=== PATIENT | female | born 1965 | race Caucasian/White ===

== ENCOUNTER 2020-06-26 07:02 | Outpatient (REF) | payer OTHER, SELFPAY ==
--- NOTE | 2020-06-26 07:17 | XR_ITS ---
EXAMINATION: XR CHEST CLINICAL INFORMATION: Cough. COMPARISON: None TECHNIQUE: 2 views of the chest were obtained. FINDINGS: Normal lung volumes. No consolidation or pulmonary edema. No pneumothorax or pleural effusion. Cardiomediastinal silhouette within normal limits. No acute osseous abnormality. Small calcification projects inferior to the acromion which may reflect calcific tendinosis in the right shoulder. XR/XR chest 2V IMPRESSION: Clear lungs. No consolidation. Question right rotator cuff calcific tendinosis.
--- NOTE | 2020-06-26 07:17 | XR_ITS ---
EXAMINATION: XR HIP, LEFT CLINICAL INFORMATION: Left hip pain COMPARISON: 06/13/2018 TECHNIQUE: Two views of the left hip. FINDINGS: There is no fracture or dislocation. The femoral head articulates appropriately with the acetabulum. The joint space is maintained. Similar spur seen at the greater trochanter when compared to prior. The visualized left hemipelvis is intact. The bowel gas pattern is unremarkable. XR/XR hip LT min 2V IMPRESSION: No acute abnormality. No significant arthritic changes.
[2020-06-26 08:17] LABS: Alanine Aminotransferase 11 U/L (0-31); Albumin Level 4.4 g/dL (3.5-5.0); Alkaline Phosphatase 66 U/L (39-117); Anion Gap 13 (12-20); Aspartate Amino Transferase 13 U/L (5-31); Bilirubin Total 0.8 mg/dL (0.0-1.0); Blood Urea Nitrogen 18 mg/dL (9-16); Calcium 10.3 mg/dL (8.4-10.2); Carbon Dioxide 30 mmol/L (22-29); Chloride 104 mmol/L (96-108); Cholesterol 220 mg/dL; Estimated Glomerular Filt Rate > 60; Glucose Fasting 102 mg/dL (60-99); HDL Cholesterol 65 mg/dL; LDL Cholesterol Calculated 118 mg/dl; Potassium 4.8 mmol/l (3.3-5.1); Sodium 142 mmol/L (135-145); Total Protein 6.9 g/dL (6.5-8.0); Triglycerides 185 mg/dL
[2020-06-30 13:41] LABS: Vitamin D 25-OH, D2 <4 ng/mL; Vitamin D 25-OH, D3 32 ng/mL; Vitamin D 25-OH, Total 32 ng/mL (30-100)
== END 2020-06-26 07:03 | disposition home or self-care (01) ==
LOC: HO.LAB 07:02
PROVIDERS: Visit Provider Internal Medicine
DX: E55.9 Vitamin D deficiency, unspecified (principal); E78.5 Hyperlipidemia, unspecified; I10 Essential (primary) hypertension; R05 Cough; M25.552 Pain in left hip; Z20.822 Contact with and (suspected) exposure to COVID-19
CPT/HCPCS: 36415; 71046; 73502; 80053; 80061; 82306; U0003

== ENCOUNTER → 2020-08-12 09:40 | Outpatient (BNVA) | payer OTHER, SELFPAY | PROVIDERS: PCP Internal Medicine; Visit Provider Obstetrics & Gynecology ==

== ENCOUNTER 2020-09-23 08:28 | Outpatient (REF) | payer OTHER, SELFPAY ==
--- NOTE | ~2020-09-23 | XR_ITS ---
EXAMINATION: XR KNEE, LEFT CLINICAL INFORMATION: Pain and unspecified the COMPARISON: Left knee x-rays June 13, 2018 TECHNIQUE: 3 views of the left knee in addition to a standing AP view of the right knee. FINDINGS: No fracture or dislocation of the left knee. No left-sided suprapatellar joint effusion. Joint spaces of the left knee are well-maintained. Tiny tricompartmental marginal osteophytes of the left knee are noted. There is no focal soft tissue swelling of the anterior left knee. Frontal view of the right knee demonstrate mild narrowing of the medial joint space height. XR/XR knee LT 3V IMPRESSION: Minimal degenerative changes of the left knee.
== END 2020-09-23 08:29 | disposition home or self-care (01) ==
LOC: HO.HOSX 08:28
PROVIDERS: Visit Provider Physician Assistant
DX: M25.562 Pain in left knee (principal); M22.42 Chondromalacia patellae, left knee
CPT/HCPCS: 73562; 99202

== ENCOUNTER → 2020-10-03 09:06 | Outpatient (BNVA) | payer OTHER, SELFPAY | PROVIDERS: PCP Internal Medicine; Visit Provider Internal Medicine Pulmonary Disease | DX: R05 Cough (principal) | CPT/HCPCS: 99202 ==

== ENCOUNTER 2020-10-20 07:42 | Outpatient (REF) | payer OTHER, SELFPAY ==
--- NOTE | 2020-10-20 17:00 | PFT_ITS ---
INDICATION: Cough. SPIROMETRY: The FEV1 to FVC of 71% with an FEV1 of 1.54 L which is 62% predicted and an FVC of 2.16 L, which is 68% predicted. No significant response to bronchodilators noted. To note, there was significant small airways disease noted. Maximum voluntary ventilation 60% predicted. LUNG VOLUMES: Total lung capacity 94% predicted with residual volume of 125% predicted. DIFFUSION CAPACITY: DLCO 63% predicted. INTERPRETATION: There appears to be an obstructive ventilatory defect, moderate in severity. In addition to that, the patient does have evidence of small airways disease. There is also a mild to moderate decrease in maximum voluntary ventilation secondary to deconditioning and also worsening dynamic inspiratory capacity. No significant response to bronchodilators. Lung volumes with significant air trapping due to the small airways disease in the obstructive physiology. The patient also has a decrease in the expiratory reserve volume secondary to an elevated BMI. In addition to that, there appears to be a mild diffusion impairment. Clinical correlation is warranted. Sabas Cortez MD MR/MODL / [id number]
== END 2020-10-20 07:43 | disposition home or self-care (01) ==
LOC: HO.RESP 07:42
PROVIDERS: PCP Internal Medicine; Visit Provider Internal Medicine Pulmonary Disease
DX: R05 Cough (principal)
CPT/HCPCS: 94060; 94727; 94729

== ENCOUNTER → 2020-10-24 08:39 | Outpatient (BNVA) | payer OTHER, SELFPAY | PROVIDERS: PCP Internal Medicine; Visit Provider Internal Medicine Pulmonary Disease | DX: R05 Cough (principal); J43.9 Emphysema, unspecified; I10 Essential (primary) hypertension; E55.9 Vitamin D deficiency, unspecified; E78.00 Pure hypercholesterolemia, unspecified; R91.8 Other nonspecific abnormal finding of lung field | CPT/HCPCS: 99212 ==

== ENCOUNTER 2020-11-13 06:36 | Outpatient (REF) | payer OTHER, SELFPAY ==
[2020-11-13 09:47] LABS: Alanine Aminotransferase 13 U/L (0-31); Albumin Level 4.2 g/dL (3.5-5.0); Alkaline Phosphatase 72 U/L (39-117); Anion Gap 12 (12-20); Aspartate Amino Transferase 15 U/L (5-31); Bilirubin Total 0.6 mg/dL (0.0-1.0); Blood Urea Nitrogen 7 mg/dL (9-16); Calcium 9.5 mg/dL (8.4-10.2); Carbon Dioxide 28 mmol/L (22-29); Chloride 106 mmol/L (96-108); Cholesterol 190 mg/dL; Estimated Glomerular Filt Rate > 60; Glucose Fasting 98 mg/dL (60-99); HDL Cholesterol 52 mg/dL; LDL Cholesterol Calculated 105 mg/dl; Potassium 4.2 mmol/L (3.3-5.1); Sodium 142 mmol/L (135-145); Total Protein 6.5 g/dL (6.5-8.0); Triglycerides 167 mg/dL
[2020-11-20 13:07] LABS: Vitamin D 25-OH, D2 <4 ng/mL; Vitamin D 25-OH, D3 33 ng/mL; Vitamin D 25-OH, Total 33 ng/mL (30-100)
== END 2020-11-13 06:37 | disposition home or self-care (01) ==
LOC: HO.LAB 06:36
PROVIDERS: PCP Internal Medicine; Visit Provider Internal Medicine
DX: E55.9 Vitamin D deficiency, unspecified (principal); E78.00 Pure hypercholesterolemia, unspecified; E78.5 Hyperlipidemia, unspecified
CPT/HCPCS: 36415; 80053; 80061; 82306

== ENCOUNTER 2021-01-08 08:43 | Outpatient (REF) | payer OTHER, SELFPAY ==
--- NOTE | ~2021-01-08 | MM_ITS ---
EXAMINATION: MM SCREENING DIGITAL BREAST TOMOSYNTHESIS, BILATERAL CLINICAL INFORMATION: Screening. Asymptomatic. The lifetime risk of breast cancer based on the Tyrer-Cuzick Model is 13%. COMPARISON: Mammography: 01/03/2020, 10/13/2018, 10/05/2017 TECHNIQUE: Digital breast tomosynthesis is performed in both the craniocaudal and mediolateral oblique views along with computer-aided detection (CAD). Synthesized 2D images are generated from the tomosynthesis. FINDINGS: The breasts are heterogeneously dense, which may obscure small masses (ACR BI-RADS breast composition Category c). There are no significant masses, abnormal calcifications, or other abnormalities. There is biopsy clip marker upper outer right breast. The axilla and skin contours are unremarkable. MM/MM tomosynthesis screening BI IMPRESSION: No mammographic evidence of malignancy. ASSESSMENT: BI-RADS 1: Negative RECOMMENDATION: Routine annual mammography screening. This patient's information was entered into a reminder system with a target due date for their next mammogram.
== END 2021-01-08 08:44 | disposition home or self-care (01) ==
LOC: HO.MAMMO 08:43
PROVIDERS: Visit Provider Internal Medicine
DX: Z12.31 Encounter for screening mammogram for malignant neoplasm of breast (principal)
CPT/HCPCS: 77063; 77067

== ENCOUNTER 2021-01-13 08:04 | Outpatient (REF) | payer OTHER, SELFPAY ==
--- NOTE | ~2021-01-13 | CT_ITS ---
EXAMINATION: CT CHEST WITHOUT CONTRAST CLINICAL INFORMATION: Pulmonary nodule. COMPARISON: Chest radiograph dated 06/26/2020 TECHNIQUE: Multidetector volumetric CT imaging of the chest was done. Axial MIP volume rendering provided. Sagittal and coronal reformatted images were obtained. This CT examination was performed using dose optimization techniques as appropriate, variously including the following: *Automated exposure control *Adjustment of mA and/or kV according to patient size (this includes techniques or standardized protocols for targeted exams where dose is matched to indication/reason for exam; i.e. extremities or head) *Use of iterative reconstruction technique DLP: 152 mGy-cm FINDINGS: FIRE ALARM INSPECTOR: Unremarkable. LUNGS: There are mild, diffuse centrilobular emphysematous changes. There is a somewhat irregular soft tissue nodule centrally within the right upper lobe measuring 0.6 cm (axial image 179/496). There is a subpleural 0.2 cm nodule along the right major fissure (axial image 251/496). Additional subpleural 0.2 cm nodule in the region of the right minor fissure (axial image 262/496). Posterior right lower lobe noncalcified nodule measuring 0.4 cm (axial image 275/496). Right middle lobe noncalcified 0.2 cm nodule (axial image 292/496). There is a 0.3 cm subpleural nodule laterally within the left lower lobe (axial image 344/496). Additional posterior 0.2 cm subpleural nodule within the left lower lobe (axial image 353/496). No large pulmonary mass or confluent airspace consolidation. The central airways are patent. MEDIASTINUM: No cardiomegaly. No pericardial effusion. Prominent precarinal lymph nodes with the largest measuring up to 1.0 x 1.3 cm (axial image 22/60). Partially visualized and unremarkable thyroid. PLEURA: There is no pleural effusion. No pleural mass or thickening. AXILLA: No lymphadenopathy. UPPER ABDOMEN: Status post cholecystectomy. Otherwise, the visualized upper abdominal structures are unremarkable. OSSEOUS STRUCTURES: Unremarkable. CT/CT chest wo con IMPRESSION: 1. Multiple bilateral noncalcified pulmonary nodules with the largest appearing slightly irregular within the right upper lobe measuring up to 0.6 cm. According to the UPDATED 2017 Fleischner Society recommendations, the advised followup imaging for multiple solid nodules, the largest measuring 6 mm or greater, is: LOW RISK PATIENT: CT at 3-6 months, then consider CT at 18-24 months. HIGH RISK PATIENT: CT at 3-6 months, then at 18-24 months. 2. No large pulmonary mass or confluent airspace consolidation. 3. Mildly enlarged superior mediastinal lymph nodes measuring up to 1.0 x 1.3 cm.
== END 2021-01-13 08:05 | disposition home or self-care (01) ==
LOC: HO.CT 08:04
PROVIDERS: PCP Internal Medicine; Visit Provider Internal Medicine Pulmonary Disease
DX: R91.8 Other nonspecific abnormal finding of lung field (principal)
CPT/HCPCS: 71250

== ENCOUNTER → 2021-03-05 14:27 | Outpatient (BNVA) | payer OTHER, SELFPAY | PROVIDERS: PCP Internal Medicine; Visit Provider Internal Medicine Pulmonary Disease | DX: J43.9 Emphysema, unspecified (principal); R91.8 Other nonspecific abnormal finding of lung field | CPT/HCPCS: 99212 ==

== ENCOUNTER → 2021-06-09 09:55 | Outpatient (BNVA) | payer OTHER, SELFPAY | PROVIDERS: PCP Internal Medicine; Visit Provider Internal Medicine Pulmonary Disease | DX: J43.9 Emphysema, unspecified (principal); R91.8 Other nonspecific abnormal finding of lung field; F17.210 Nicotine dependence, cigarettes, uncomplicated | CPT/HCPCS: 99212 ==

== ENCOUNTER 2021-08-13 09:45 | Outpatient (REF) | payer OTHER, SELFPAY ==
--- NOTE | ~2021-08-13 | XR_ITS ---
EXAMINATION: XR knee LT 3V CLINICAL INFORMATION: Pain COMPARISON: Knee radiographs 09/23/2020 TECHNIQUE: 3 views of the knee XR/XR knee LT 3V FINDINGS/IMPRESSION: No acute fracture or dislocation. Achilles tendon enthesopathy. Joint spaces are maintained. No joint effusion. Soft tissues are unremarkable.
== END 2021-08-13 09:46 | disposition home or self-care (01) ==
LOC: HO.XRAY 09:45
PROVIDERS: PCP Internal Medicine; Visit Provider Internal Medicine
DX: M25.562 Pain in left knee (principal)
CPT/HCPCS: 73562

== ENCOUNTER 2021-09-07 12:39 | Outpatient (REF) | payer OTHER, SELFPAY ==
--- NOTE | ~2021-09-07 | CT_ITS ---
EXAMINATION: CT CHEST WITHOUT CONTRAST CLINICAL INFORMATION: Follow-up pulmonary nodules COMPARISON: Previous chest CT December 2020 TECHNIQUE: Multidetector volumetric CT imaging of the chest was done. Axial MIP volume rendering provided. Sagittal and coronal reformatted images were obtained. This CT examination was performed using dose optimization techniques as appropriate, variously including the following: *Automated exposure control *Adjustment of mA and/or kV according to patient size (this includes techniques or standardized protocols for targeted exams where dose is matched to indication/reason for exam; i.e. extremities or head) *Use of iterative reconstruction technique DLP: 164 mGy-cm FINDINGS: THREE DIMENSIONAL ART INSTRUCTOR: Unremarkable LUNGS: There is evidence of emphysema. There are bilateral pulmonary nodules are stable. Largest pulmonary nodule is a 5 mm right upper lobe nodule axial image 231 series 7. No new pulmonary nodule is seen. There are areas of increased peribronchial attenuation questionable for respiratory bronchiolitis related to smoking. No evidence of interstitial lung disease or bronchiectasis is seen. No endobronchial or endotracheal lesion is seen. MEDIASTINUM: The mediastinum is normal. There are small mediastinal lymph nodes that are stable. PLEURA: There is no pleural effusion. No pleural mass or thickening. AXILLA: No lymphadenopathy. UPPER ABDOMEN: The gallbladder has been removed. OSSEOUS STRUCTURES: There are degenerative changes of the spine. CT/CT chest wo con IMPRESSION: Emphysema. Stable pulmonary nodules. Increased peribronchial attenuation questionable for respiratory bronchiolitis related to smoking Fleischner guidelines were followed.
== END 2021-09-07 12:40 | disposition home or self-care (01) ==
LOC: HO.CT 12:39
PROVIDERS: PCP Internal Medicine; Visit Provider Internal Medicine Pulmonary Disease
DX: R91.8 Other nonspecific abnormal finding of lung field (principal)
CPT/HCPCS: 71250

== ENCOUNTER → 2021-09-15 09:39 | Outpatient (BNVA) | payer OTHER, SELFPAY | PROVIDERS: PCP Internal Medicine; Visit Provider Internal Medicine Pulmonary Disease | DX: J43.9 Emphysema, unspecified (principal); R91.8 Other nonspecific abnormal finding of lung field; F17.210 Nicotine dependence, cigarettes, uncomplicated | CPT/HCPCS: 99212 ==

== ENCOUNTER 2021-09-29 08:14 | Outpatient (REF) | payer OTHER, SELFPAY ==
[2021-09-30 12:15] LABS: BV Int Neg Control Negative (Negative); BV Int Pos Control Positive (Positive)
[2021-10-01 23:13] LABS: HPV mRNA E6/E7 rflx Not Detected (Not Detected)
== END 2021-09-29 08:15 | disposition home or self-care (01) ==
LOC: HO.LAB 08:14
PROVIDERS: PCP Internal Medicine; Visit Provider Advanced Practice Midwife
DX: Z01.419 Encounter for gynecological examination (general) (routine) without abnormal findings (principal); N89.8 Other specified noninflammatory disorders of vagina; F17.210 Nicotine dependence, cigarettes, uncomplicated; Z20.2 Contact with and (suspected) exposure to infections with a predominantly sexual mode of transmission
CPT/HCPCS: 87480; 87510; 87624; 87660; 88142

== ENCOUNTER 2021-11-17 10:25 | Outpatient (REF) | payer OTHER, SELFPAY | END 2021-11-17 10:26 | disposition home or self-care (01) | LOC: HO.LAB 10:25 | PROVIDERS: Visit Provider Advanced Practice Midwife | DX: N90.89 Other specified noninflammatory disorders of vulva and perineum (principal) | CPT/HCPCS: 56605; 88305; 88312; 88341; 88342; 88360 ==

== ENCOUNTER → 2021-12-07 10:00 | Outpatient (BNVA) | payer OTHER, SELFPAY | PROVIDERS: PCP Internal Medicine; Visit Provider Advanced Practice Midwife | DX: L28.0 Lichen simplex chronicus (principal) | CPT/HCPCS: 99212 ==

== ENCOUNTER 2021-12-19 06:47 | Outpatient (REF) | payer OTHER, SELFPAY ==
[2021-12-19 08:22] LABS: Alanine Aminotransferase 10 U/L (0-31); Albumin Level 4.2 g/dL (3.5-5.0); Alkaline Phosphatase 69 U/L (39-117); Anion Gap 10 (12-20); Aspartate Amino Transferase 11 U/L (5-31); Bilirubin Total 0.2 mg/dL (0.0-1.0); Blood Urea Nitrogen 12 mg/dL (9-16); Calcium 9.5 mg/dL (8.4-10.2); Carbon Dioxide 29 mmol/L (22-29); Chloride 105 mmol/L (96-108); Cholesterol 203 mg/dL; Estimated Glomerular Filt Rate > 60; Glucose Fasting 105 mg/dL (60-99); HDL Cholesterol 51 mg/dL; LDL Cholesterol Calculated 121 mg/dl; Potassium 4.1 mmol/L (3.3-5.1); Sodium 140 mmol/L (135-145); Total Protein 6.5 g/dL (6.5-8.0); Triglycerides 155 mg/dL
[2021-12-19 08:42] LABS: Vitamin D 25-OH Total 26.5 ng/mL (>30)
== END 2021-12-19 06:48 | disposition home or self-care (01) ==
LOC: HO.LAB 06:47
PROVIDERS: PCP Internal Medicine; Visit Provider Internal Medicine
DX: E78.5 Hyperlipidemia, unspecified (principal); E55.9 Vitamin D deficiency, unspecified; I10 Essential (primary) hypertension
CPT/HCPCS: 36415; 80053; 80061; 82306

== ENCOUNTER 2022-01-21 07:34 | Outpatient (REF) | payer OTHER, SELFPAY ==
--- NOTE | ~2022-01-21 | MM_ITS ---
EXAMINATION: MM SCREENING DIGITAL BREAST TOMOSYNTHESIS, BILATERAL CLINICAL INFORMATION: Screening. Asymptomatic. The lifetime risk of breast cancer based on the Tyrer-Cuzick Model is 10.0%. COMPARISON: Mammography: January 08, 2021 and studies dating back to May 04, 2016 TECHNIQUE: Digital breast tomosynthesis is performed in both the craniocaudal and mediolateral oblique views along with computer-aided detection (CAD). Synthesized 2D images are generated from the tomosynthesis. FINDINGS: The breasts are heterogeneously dense, which may obscure small masses (ACR BI-RADS breast composition Category c). There are no new significant masses, abnormal calcifications, or other abnormalities. MM/MM tomosynthesis screening BI IMPRESSION: No mammographic evidence of malignancy. ASSESSMENT: BI-RADS 1: Negative RECOMMENDATION: Routine annual mammography screening. This patient's information was entered into a reminder system with a target due date for their next mammogram.
== END 2022-01-21 07:35 | disposition home or self-care (01) ==
LOC: HO.MAMMO 07:34
PROVIDERS: PCP Internal Medicine; Visit Provider Internal Medicine
DX: Z12.31 Encounter for screening mammogram for malignant neoplasm of breast (principal)
CPT/HCPCS: 77063; 77067

== ENCOUNTER → 2022-03-09 14:56 | Outpatient (BNVA) | payer OTHER, SELFPAY | PROVIDERS: PCP Internal Medicine; Visit Provider Internal Medicine Pulmonary Disease | DX: J43.9 Emphysema, unspecified (principal); R91.8 Other nonspecific abnormal finding of lung field; R06.01 Orthopnea | CPT/HCPCS: 99212 ==

== ENCOUNTER 2022-08-18 07:04 | Outpatient (REF) | payer OTHER, SELFPAY ==
[2022-08-18 08:19] LABS: Alanine Aminotransferase 9 U/L (0-31); Albumin Level 4.2 g/dL (3.5-5.0); Alkaline Phosphatase 65 U/L (39-117); Anion Gap 12 (12-20); Aspartate Amino Transferase 11 U/L (5-31); Bilirubin Total 0.7 mg/dL (0.0-1.0); Blood Urea Nitrogen 11 mg/dL (9-16); Calcium 9.8 mg/dL (8.4-10.2); Carbon Dioxide 29 mmol/L (22-29); Chloride 104 mmol/L (96-108); Cholesterol 217 mg/dL; Estimated Glomerular Filt Rate > 60; Glucose Fasting 95 mg/dL (60-99); HDL Cholesterol 62 mg/dL; LDL Cholesterol Calculated 117 mg/dl; Potassium 4.7 mmol/L (3.3-5.1); Sodium 140 mmol/L (135-145); Total Protein 6.5 g/dL (6.5-8.0); Triglycerides 190 mg/dL
[2022-08-18 08:37] LABS: Vitamin D 25-OH Total 24.4 ng/mL (>30)
== END 2022-08-18 07:05 | disposition home or self-care (01) ==
LOC: HO.LAB 07:04
PROVIDERS: PCP Internal Medicine; Visit Provider Internal Medicine
DX: E78.5 Hyperlipidemia, unspecified (principal); E55.9 Vitamin D deficiency, unspecified; I10 Essential (primary) hypertension
CPT/HCPCS: 36415; 80053; 80061; 82306

== ENCOUNTER 2022-10-20 13:00 | Outpatient (RCR) | payer OTHER, SELFPAY ==
--- NOTE | 2022-11-09 13:42 | MHC.PT.DC ---
[facility] [place] Office [place] Office [place] Office [address] Tim Cochran [address] [phone] F: [phone] F: [phone] F: [phone] F: [phone] Physical Therapy Discharge Report Diagnosis: LOW BACK PAIN (KP) Date of Surgery: NA Date of Evaluation: 09/23/22 Date of Discharge: Treatments to Date: 8 Cancellations to Date: 0 No Shows to Date: 0 Discharge Status: Improved Function Independent with HEP Discharge Summary: Pt has met or is in progress on all current goals. Still with some bad days pain sauceda but experiencing improvement overall with more frequent days of decreased pain and sxs and independent with HEP and management at this time. Improvement in overall body awareness and mechanics. D/C I with HEP. Electronically signed by: RADHA HUNTER PT DPT Please sign and return to therapist. Thank you for your referral.
== END 2022-11-09 13:42 | disposition home or self-care (01) ==
LOC: HO.PT 13:00
PROVIDERS: PCP Internal Medicine; Visit Provider Internal Medicine
DX: M54.50 Low back pain, unspecified (principal)
CPT/HCPCS: 97110; 97161

== ENCOUNTER 2022-11-10 07:05 | Outpatient (REF) | payer OTHER, SELFPAY ==
--- NOTE | ~2022-11-10 | CT_ITS ---
EXAMINATION: CT CHEST WITHOUT CONTRAST CLINICAL INFORMATION: Other nonspecific abnormal finding of lung field. Pulmonary nodules. COMPARISON: Previous chest CT August 2021 TECHNIQUE: Multidetector volumetric CT imaging of the chest was done. Axial MIP volume rendering provided. Sagittal and coronal reformatted images were obtained. This CT examination was performed using dose optimization techniques as appropriate, variously including the following: *Automated exposure control *Adjustment of mA and/or kV according to patient size (this includes techniques or standardized protocols for targeted exams where dose is matched to indication/reason for exam; i.e. extremities or head) *Use of iterative reconstruction technique DLP: 150 mGy-cm FINDINGS: BRICK SIDING APPLICATOR: Unremarkable. LUNGS: Mild biapical pleural and parenchymal scarring. There is evidence of emphysema. Small pulmonary nodules are stable. Largest pulmonary nodules are a 4 mm peripheral or subpleural left upper lobe nodule axial image 80 series 5, 4 mm right upper lobe nodule axial image 173 series 5 and 4 mm right lower lobe nodule axial image 258 series 5. No new pulmonary nodule. Scattered areas of increased peribronchial attenuation probably representing respiratory bronchiolitis related to smoking. No endobronchial or endotracheal lesion. MEDIASTINUM: The mediastinum is normal. CORONARY ARTERY CALCIFICATION: None visualized on this study. PLEURA: There is no pleural effusion. No pleural mass or thickening. AXILLA: No lymphadenopathy. UPPER ABDOMEN: The gallbladder has been removed. OSSEOUS STRUCTURES: Degenerative changes of the spine. CT/CT chest wo IV con IMPRESSION: Emphysema. Stable pulmonary nodules. Increased peribronchial attenuation questionable for respiratory bronchiolitis related to smoking. Fleischner guidelines were followed.
== END 2022-11-10 07:06 | disposition home or self-care (01) ==
LOC: HO.CT 07:05
PROVIDERS: PCP Internal Medicine; Visit Provider Internal Medicine Pulmonary Disease
DX: R91.8 Other nonspecific abnormal finding of lung field (principal)
CPT/HCPCS: 71250

== ENCOUNTER 2023-01-03 16:11 | Outpatient (AMB) | payer OTHER, SELFPAY ==
[2023-01-03 16:28] VITALS: BP 162/102; PULSE 85; O2SAT 96; BMI 31.8
--- NOTE | 2023-01-03 16:28 | A.OFFPC_ITS ---
Vital Signs 01/03/23 16:28 01/03/23 16:50 Height 5 ft 2 in Weight 174 lb BMI 31.8 BP 162/102 H 165/100 H Blood Pressure Location Lt brachial Lt brachial Position Sitting Sitting Pulse 85 Pulse Source Pulse Oximeter Pulse Oximetry (%) 96 Oxygen Delivery Method Room Air Intake Visit Reasons: bp Computer Network Specialist Required: No Accompanied by: Self / Same As Patient Allergies amlodipine Adverse Reaction (Verified 01/03/23 16:41) leg edema Medication List - Last Reconciled 01/03/23 by Megan Grant MD albuterol sulfate 90 mcg/actuation 2 puffs inhalation Q6H PRN 30 days aspirin (Adult Aspirin Regimen) 81 mg PO DAILY 90 days atorvastatin 80 mg PO BEDTIME 90 days cholecalciferol (vitamin D3) 50 mcg PO DAILY 90 days Combivent Respimat 20-100 mcg/actuation (ipratropium-albuterol) 1 puff inhalation Q6H 30 days NS fluocinolone 0.025% 1 appl topical BID 7 days fluticasone furoate-vilanterol 200-25 mcg/dose (Breo Ellipta) 1 ea PO DAILY hydralazine 50 mg PO TID 90 days ibuprofen 800 mg PO Q8H PRN 30 days ipratropium-albuterol 0.5 mg-3 mg(2.5 mg base)/3 mL 3 mL inhalation QID 30 days losartan 100 mg PO DAILY 90 days Tobacco use date assessed: 08/19/22 Dental Screening Dental Screen Date: 01/03/23 Did you have a dental visit in the last 12 months?: No Did you have a dental problem in the last 6 months where you did not have access to dental care?: No Was dental information given to patient?: No HPI HPI Comments History of Present Illness Details This is a 57-year-old female with hypertension, pure hyperchol esterolemia, emphysema and lumbar pain that comes today for follow-up on her conditions. Blood pressure elevated and will be recheck by nurse navigator in 3 weeks. Lipid panel will be repeated. On Breo for her emphysema. Complains of more chest congestion and this is why I will send her on antibiotic. Has lumbar pain occasionally that is relieved by ibuprofen as needed. I recommend to try Tylenol before ibuprofen because ibuprofen can increase her blood pressure. She denies any chest pain or shortness of breath. [facility] Medical History Cough Essential hypertension History of abnormal cervical Pap smear Hypovitaminosis D Left hip pain Left knee pain Pure hypercholesterolemia Surgical History History of ectopic History of laparoscopic cholecystectomy Family History Father Diabetes Hypertension Mother No problems noted. 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 1. Little interest or pleasure in doing things: not at all 2. Feeling down, depressed, or hopeless: not at all 3. Trouble falling or staying asleep, or sleeping too much: not at all 4. Feeling tired or having little energy: not at all 5. Poor appetite or overeating: not at all 6. Feeling bad about yourself - or that you are a failure or have let yourself or your family down: not at all 7. Trouble concentrating on things, such as reading the newspaper or watching television: not at all 8. Moving or speaking so slowly that other people could have noticed. Or the opposite - being so fidgety or restless that you have been moving around a lot more than usual: not at all 9. Thoughts that you would be better off or of hurting yourself in some way: not at all Total score: 0 Depression Screening Interpretation: Negative 72194 - PHQ-9 Billing: Yes Source: Developed by Drs. Doug Valiente, Sharon HubbardCristóbal and colleagues, with an educational vida from [employer]. Thrive Questionnaire Date Thrive assessed: 08/19/22 AUDIT C Alcohol Use Questionnaire (AUDIT-C) 1. How often do you have a drink containing alcohol?: Never Total Score: 0 NIKO-7 AMB Questionnaire NIKO-7 Date NIKO - 7 assessed: 08/19/22 Source: Developed by Drs. Doug Valiente, Sharon Hubbard, Cristóbal Armijo and colleagues, with an educational vida from [employer]. Review of Systems Const All systems reviewed & are unremarkable except as noted in HPI and below Eyes Reports no additional complaints, Denies change in vision and Denies other visual disturbances Card Denies chest pain at rest, Denies chest pain with activity, Denies edema, Denies irregular heart rhythm, Denies claudication, Denies dyspnea, Denies dyspnea on exertion, Denies orthopnea, Denies paroxysmal nocturnal dyspnea and Denies slow heart rate Resp Denies cough, Denies dyspnea and Denies dyspnea on exertion GI Denies abdominal pain, Denies change in bowel habits, Denies excessive flatus, Denies nausea and Denies vomiting Denies urinary incontinence, Denies urinary hesitancy and Denies urinary urgency Musc Denies abnormal gait, Denies atrophy, Denies deformity and Denies limited range of motion Skin/Breast Denies bleeding lesions, Denies changing lesions and Denies rash Neuro Denies abnormal gait and Denies lack of coordination Physical exam (Primary Care) Vital Signs: Last Vital Signs Pulse 85 01/03/23 16:28 BP 165/100 H 01/03/23 16:50 Pulse Ox 96 01/03/23 16:28 Oxygen Delivery Method Room Air 01/03/23 16:28 BMI result Body Mass Index 31.8 Tobacco/Smoking Status: Tobacco use Status Tobacco use date assessed 08/19/22 01/03/23 16:31 Patient Tobacco Use Status Current everyday Tobacco 01/03/23 16:31 Tobacco use type Cigarette 01/03/23 16:31 e-Cigarette/Vaping Use Never Used 01/03/23 16:31 PHQ-9: PHQ-9 Score PHQ-9: Total score 0 01/03/23 16:46 Depression Screening Interpretation: Negative Thrive Assessment: Date of Thrive Assessment Date Thrive assessed 08/19/22 01/03/23 16:31 Eyes General: appearance normal, both eyes and all related structures Eyelids: Yes eyelids normal Conjunctivae: conjunctivae normal Neck Neck: Yes normal visual inspection and Yes supple Resp Effort & Inspection: normal respiratory effort Auscultation: clear to auscultation bilaterally Cardio Jugular venous distension: no JVD Rate: regular rate Rhythm: regular rhythm Heart sounds: S1 normal heart sound present and S2 normal heart sound present Extrem General: Yes full ROM Assessment and Plan Assessment & Plan (1) Emphysema lung: Code(s): J43.9 - Emphysema, unspecified Qualifiers: Emphysema type: unspecified Qualified Code(s): J43.9 - Emphysema, unspecified Plan: Continue Breo. Use rescue inhaler as needed. Follow-up with pulmonology. (2) Lumbar pain: Code(s): M54.50 - Low back pain, unspecified Plan: Continue ibuprofen as needed. (3) Essential hypertension: Code(s): I10 - Essential (primary) hypertension Plan: Continue hydralazine and losartan. Blood pressure goal is equal or less than 130/80. (4) Pure hypercholesterolemia: Code(s): E78.00 - Pure hypercholesterolemia, unspecified Plan: Continue statins. Repeat lipid panel. Orders: Orders Comprehensive [place]. Panel Fast Today I10 - Essential (primary) hypertension Lipid Panel Today E78.5 - Hyperlipidemia, unspecified Vitamin D 25-OH Total Today E55.9 - Vitamin D deficiency, unspecified Medications: New azithromycin Take 2 tabs the first day, then 1 tab the next 4 days 250 mg PO DAILY 6 tabs 0RF 5 days Coding Level of Care Code Est Pt Level 4 (94052) Diagnoses Emphysema lung J43.9 Emphysema type: unspecified Lumbar pain M54.50 Essential hypertension I10 Pure hypercholesterolemia E78.00 Time Spent (min) 23
[2023-01-03 16:50] VITALS: BP 165/100
== END 2023-01-03 16:56 | disposition home or self-care (01) ==
PROVIDERS: PCP Internal Medicine; Visit Provider Internal Medicine
DX: J43.9 Emphysema, unspecified (principal); M54.50 Low back pain, unspecified; I10 Essential (primary) hypertension; E78.00 Pure hypercholesterolemia, unspecified
CPT/HCPCS: 99214

== ENCOUNTER 2023-03-15 11:00 | Outpatient (AMB) | payer OTHER, SELFPAY ==
[2023-03-15 11:05] VITALS: BP 132/78; BMI 34.0
--- NOTE | 2023-03-15 11:05 | MHC.OFFVIS ---
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 Scribed for BREE Abraham by Betty Bonilla medical tech, on 03/15/2023 at 11:32 am EST. Meteorological Equipment Repairer: Meteorological Equipment Repairer Present ([place]) Allergies amlodipine Adverse Reaction (Verified 03/15/23 11:06) leg edema HPI HPI Comments History of Present Illness Details She is a postmenopausal woman presenting for annual exam. Patient admits she tries to eat a healthy diet including Calcium and Vitamin D. She stays active with exercise. Admits vaginal itching and irritation. Denies any new soaps or detergents; only washes with water. Hx of lichen sclerosus; used RX in the past which helped. Denies family hx of breast, colon and ovarian cancer. Last pap smear 09/29/21; 2019 abnormal. Last mammogram 01/21/22. UTD on colonoscopy. FORMERLY [facility], [facility] Medical History (Updated 03/15/23 @ 11:46 by Santa Brothers CNM) Lichen sclerosus History of abnormal cervical Pap smear Left knee pain Cough Hypovitaminosis D Pure hypercholesterolemia Essential hypertension Left hip pain Surgical History History of loop electrical excision procedure (LEEP) History of ectopic History of laparoscopic cholecystectomy Family History Father Diabetes Hypertension Mother No problems noted. 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 Current occupational exposures/hazards: No Gender identity: Female Cognitive needs: No Hearing needs: No Vision needs: No Female Reproductive History Menstrual Age of Menarche: 10 Total pregnancies: 3 Full term: 2 Number of Living Children: 2 Date of last pap smear: 09/29/21 (neg pap and hpv) History of abnormal pap smear: Yes ( hgsil colpo tasha 1-2 leep tasha 1-2 colpo tasha 1) Date of Mammogram: 01/21/22 (Birad 1) Physical Exam Vital Signs: Last Vital Signs BP 132/78 03/15/23 11:05 BMI result Body Mass Index 34.0 Const General: cooperative, healthy appearing, no acute distress, well developed and alert Orientation/consciousness: patient oriented x3 HEENT Head: Yes normal to inspection Eyes General: appearance normal, both eyes and all related structures Neck Neck: Yes normal visual inspection Thyroid: Thyroid normal Chest Chest palpation & inspection: normal inspection of the chest Breast/axilla inspection: normal inspection of the breasts (no puckering, dimpling, peau de orange, retraction, discharge, masses) Breast/axilla palpation: normal palpation of the breasts Resp Effort & Inspection: normal respiratory effort GI Inspection: Yes normal to inspection and Yes obesity Palpation (GI): Soft to palpation (to palpation) Rectal Exam - Female: deferred General: Yes bladder normal to inspection External Female Exam: normal appearance of the urethra and other (mild hypopigmentation around the mahogany clitoral area) Speculum Exam - Vagina: normal appearance of the vagina, normal palpation and normal vaginal discharge Speculum Exam - Cervix: normal appearance of the cervix, normal palpation and Other cervical findings present (post-LEEP appearance) Bimanual exam- vagina & uterus: normal palpation and normal palpation Bimanual Exam- Adnexa, other: normal adnexae and no masses Skin General skin exam: no rashes or lesions noted Neuro General: patient oriented x3 Cognition (Neuro): normal cognition Extrem General: Yes normal to inspection Psych Attitude: cooperative Thought process: Normal thought process present Assessment & Plan Assessment & Plan (1) Encounter for well woman exam: Code(s): Z01.419 - Encounter for gynecological examination (general) (routine) without abnormal findings Plan: Discussed: Current recommendations for pap smears per ASCCP guidelines. Breast awareness and periodic self breast exams. Encouraged yearly mammograms. Maintaining a healthy lifestyle including a well balanced diet including Calcium and Vitamin D and routine exercise. Contact office with any PMB. All of her questions and concerns were addressed to the best of my ability. RTO in 1 year for AG. (2) Vaginal itching: Code(s): N89.8 - Other specified noninflammatory disorders of vagina Plan: Advised to clean with water only, no soaps to the area, dry well and wear cotton underwear. Rx sent to pharmacy. (3) Lichen sclerosus: Code(s): L90.0 - Lichen sclerosus et atrophicus Orders: Orders MM tomosynthesis screening BI Today Z12.31 - Encounter for screening mammogram for malignant neoplasm of breast Medications: New hydrocortisone valerate 0.2% apply a thin coat to the area twice a week. Not to be used with other topical creams. 1 appl topical ONCE 45 grams 1RF Quality Reporting (2019) Adult ([facility] 138/2/) Smoking risk assessment performed?: Yes Patient Tobacco Use Status: Current everyday Tobacco user Coding Level of Care Code Est Pt Prev Care 40-64y(34137) Diagnoses Encounter for well woman exam Z01.419 Vaginal itching N89.8 Lichen sclerosus L90.0
== END 2023-03-15 11:36 | disposition home or self-care (01) ==
PROVIDERS: PCP Internal Medicine; Visit Provider Advanced Practice Midwife
DX: Z01.419 Encounter for gynecological examination (general) (routine) without abnormal findings (principal); N89.8 Other specified noninflammatory disorders of vagina; L90.0 Lichen sclerosus et atrophicus
CPT/HCPCS: 99396

== ENCOUNTER → 2023-03-15 11:00 | Outpatient (BNVA) | payer OTHER, SELFPAY | PROVIDERS: PCP Internal Medicine; Visit Provider Advanced Practice Midwife | DX: Z01.419 Encounter for gynecological examination (general) (routine) without abnormal findings (principal); N89.8 Other specified noninflammatory disorders of vagina; L90.0 Lichen sclerosus et atrophicus | CPT/HCPCS: 99396 ==

== ENCOUNTER 2023-04-22 07:43 | Outpatient (REF) | payer OTHER, SELFPAY ==
--- NOTE | ~2023-04-22 | MM_ITS ---
EXAMINATION: MM SCREENING DIGITAL BREAST TOMOSYNTHESIS, BILATERAL CLINICAL INFORMATION: Screening. Asymptomatic. COMPARISON: Mammography: This study is compared with prior exams dating back to 2017. TECHNIQUE: Digital breast tomosynthesis is performed in both the craniocaudal and mediolateral oblique views along with computer-aided detection (CAD). Synthesized 2D images are generated from the tomosynthesis. FINDINGS: There are scattered areas of fibroglandular density (ACR BI-RADS breast composition Category b). There are grouped calcifications in the upper outer quadrant of the left breast at a middle depth. Additional mammographic imaging of these calcifications with magnification is advised. There are no significant findings in the remainder of the left breast. In the right breast, there are no significant masses, abnormal calcifications, or other abnormalities. There is tissue marker in the upper outer quadrant of the right breast from prior benign percutaneous biopsy. MM/MM tomosynthesis screening BI IMPRESSION: Grouped calcifications of the left breast warrant additional mammographic imaging magnification. No mammographic signs of malignancy right breast. ASSESSMENT: BI-RADS BI-RADS 0 - Incomplete: Needs additional Imaging. RECOMMENDATION: Additional views of the left breast Radiology department staff will contact the patient for additional imaging. Additional Imaging required This examination should not preclude the clinical evaluation of a suspicious palpable abnormality. This patient's information was entered into a reminder system with a target due date for their next mammogram.
== END 2023-04-22 07:44 | disposition home or self-care (01) ==
LOC: HO.MAMMO 07:43
PROVIDERS: PCP Internal Medicine; Visit Provider Advanced Practice Midwife
DX: Z12.31 Encounter for screening mammogram for malignant neoplasm of breast (principal)
CPT/HCPCS: 77063; 77067

== ENCOUNTER → 2023-04-22 08:00 | Outpatient (BNV) | payer OTHER, SELFPAY | PROVIDERS: PCP Internal Medicine; Visit Provider Radiology Diagnostic Radiology | DX: Z12.31 Encounter for screening mammogram for malignant neoplasm of breast (principal) | CPT/HCPCS: 77063; 77067 ==

== ENCOUNTER 2023-05-16 12:40 | Outpatient (REF) | payer OTHER, SELFPAY ==
--- NOTE | ~2023-05-16 | MM_ITS ---
EXAMINATION: MM DIAGNOSTIC DIGITAL MAMMOGRAPHY, LEFT CLINICAL INFORMATION: The patient presents for additional mammographic imaging of left breast calcifications is noted on screening mammography from 04/22/2023. COMPARISON: Mammography: This study is compared with prior breast imaging dating back to 2017. TECHNIQUE: Digital mammography is performed in the following views: CC and lateral magnification imaging of the left breast and a full lateral view of the left breast. FINDINGS: There are scattered areas of fibroglandular density (ACR BI-RADS breast composition Category b). There are grouped, coarse calcifications in the upper outer quadrant of the left breast. They warrant stereotactic biopsy given the change from the prior 2021 mammogram. Results are provided to the patient at time of visit by the technologist. MM/MM added views LT IMPRESSION: Stereotactic biopsy advised for indeterminate left breast calcifications. ASSESSMENT: BI-RADS BI-RADS 4 - Suspicious finding RECOMMENDATION: Biopsy recommended This patient's information was entered into a reminder system with a target due date for their next mammogram.
== END 2023-05-16 12:41 | disposition home or self-care (01) ==
LOC: HO.MAMMO 12:40
PROVIDERS: PCP Internal Medicine; Visit Provider Advanced Practice Midwife
DX: R92.1 Mammographic calcification found on diagnostic imaging of breast (principal)
CPT/HCPCS: 77065

== ENCOUNTER → 2023-05-16 13:00 | Outpatient (BNV) | payer OTHER, SELFPAY | PROVIDERS: PCP Internal Medicine; Visit Provider Radiology Diagnostic Radiology | DX: R92.1 Mammographic calcification found on diagnostic imaging of breast (principal) | CPT/HCPCS: 77061; 77065 ==

== ENCOUNTER 2023-05-24 13:27 | Outpatient (AMB) | payer OTHER, SELFPAY ==
--- NOTE | 2023-05-24 13:28 | MHC.PC.OV ---
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 Required: No Accompanied by: Self / Same As Patient Allergies amlodipine Adverse Reaction (Verified 05/24/23 13:39) leg edema Medication List - Last Reconciled 05/24/23 by Megan Grant MD albuterol sulfate 90 mcg/actuation 2 puffs inhalation Q6H PRN 30 days aspirin (Adult Aspirin Regimen) 81 mg PO DAILY 90 days atorvastatin 80 mg PO BEDTIME 90 days cholecalciferol (vitamin D3) 50 mcg PO DAILY 90 days Combivent Respimat 20-100 mcg/actuation (ipratropium-albuterol) 1 puff inhalation Q6H 30 days NS fluticasone furoate-vilanterol 200-25 mcg/dose (Breo Ellipta) 1 ea PO DAILY hydralazine 50 mg PO TID 90 days hydrocortisone valerate 0.2% 1 appl topical ONCE ibuprofen 800 mg PO Q8H PRN 30 days ipratropium-albuterol 0.5 mg-3 mg(2.5 mg base)/3 mL 3 mL inhalation QID 30 days losartan 100 mg PO DAILY 90 days Tobacco use date assessed: 08/19/22 Dental Screening Dental Screen Date: 05/24/23 Did you have a dental visit in the last 12 months?: No Did you have a dental problem in the last 6 months where you did not have access to dental care?: No Was dental information given to patient?: Patient declined HPI HPI Comments History of Present Illness Details This is a 57-year-old female with emphysema comes for her physical exam. Blood pressure elevated and will be recheck in 3 weeks by nurse navigator. Mammogram done 2022 and is scheduled for breast biopsy in June 2023. Pap smear done 2021 was negative for HPV. Colonoscopy done 2017 showing hyperplastic polyp. No chest pain or shortness of breath more than usual. [facility] Medical History (Updated 05/24/23 @ 13:54 by Megan Grant MD) Lichen sclerosus History of abnormal cervical Pap smear Left knee pain Cough Hypovitaminosis D Pure hypercholesterolemia Essential hypertension Left hip pain Surgical History History of loop electrical excision procedure (LEEP) History of ectopic History of laparoscopic cholecystectomy Family History Father Diabetes Hypertension Mother No problems noted. 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 Doug Valiente, Sharon Hubbard, Cristóbal Armijo and colleagues, with an educational vida from [employer]. Review of Systems Const All systems reviewed & are unremarkable except as noted in HPI and below Eyes Reports no additional complaints, Denies change in vision and Denies other visual disturbances Card Denies chest pain at rest, Denies chest pain with activity, Denies edema, Denies irregular heart rhythm, Denies claudication, Denies dyspnea, Denies dyspnea on exertion, Denies orthopnea, Denies paroxysmal nocturnal dyspnea and Denies slow heart rate Resp Denies cough, Denies dyspnea and Denies dyspnea on exertion GI Denies abdominal pain, Denies change in bowel habits, Denies excessive flatus, Denies nausea and Denies vomiting Denies urinary incontinence, Denies urinary hesitancy and Denies urinary urgency Musc Denies abnormal gait, Denies atrophy, Denies deformity and Denies limited range of motion Skin/Breast Denies bleeding lesions, Denies changing lesions and Denies rash Neuro Denies abnormal gait, Denies behavioral changes, Denies confusion and Denies lack of coordination Psych Denies behavioral changes and Denies confusion Physical exam (Primary Care) Vital Signs: Last Vital Signs BP 186/90 H 12/26/23 13:29 BMI result Body Mass Index 34.0 Tobacco/Smoking Status: Tobacco use Status Tobacco use date assessed 08/19/22 05/24/23 13:34 Patient Tobacco Use Status Current everyday Tobacco 05/24/23 13:34 Tobacco use type Cigarette 05/24/23 13:34 e-Cigarette/Vaping Use Never Used 05/24/23 13:34 Thrive Assessment: Date of Thrive Assessment Date Thrive assessed 08/19/22 05/24/23 13:34 Const General: No confusion Orientation/consciousness: patient oriented x3 and No confusion HENMT Head: Yes normal to inspection, Yes normocephalic and Yes atraumatic Ears: external ears normal Eyes General: appearance normal, both eyes and all related structures Eyelids: Yes eyelids normal Conjunctivae: conjunctivae normal Neck Neck: Yes normal visual inspection and Yes supple Resp Effort & Inspection: normal respiratory effort Auscultation: clear to auscultation bilaterally Cardio Jugular venous distension: no JVD Rate: regular rate Rhythm: regular rhythm Heart sounds: S1 normal heart sound present and S2 normal heart sound present GI Inspection: Yes normal to inspection Palpation (GI): Soft to palpation and nontender Auscultation: normal bowel sounds Skin General skin exam: no rashes or lesions noted Neuro General: patient oriented x3, no focal motor deficits and No confusion Extrem General: Yes full ROM Psych Appearance: grossly normal Office Procedures Flu Questionnaire Does the patient have a severe egg allergy?: No Immunizations flu vacc [id number] 6mos up(PF) 60 mcg(15 mcgx4)/0.5 mL IM syringe Performing Provider: Megan Grant MD [facility] Documented (not given) by: RICHARD Nix on 05/24/23 13:35 Reason Not Given: Received Previously Assessment and Plan Assessment & Plan (1) Physical exam: Code(s): Z00.00 - Encounter for general adult medical examination without abnormal findings Plan: Repeat in a year. (2) Emphysema lung: Code(s): J43.9 - Emphysema, unspecified Qualifiers: Emphysema type: unspecified Qualified Code(s): J43.9 - Emphysema, unspecified Plan: Continue longstanding inhaler. Use rescue inhaler as needed. Follow-up with pulmonology. Orders: Orders Vitamin D 25-OH Total 4 Months E55.9 - Vitamin D deficiency, unspecified Influenza [id number] Immunization Today Z23 - Encounter for immunization Lipid Panel 4 Months E78.00 - Pure hypercholesterolemia, unspecified, E78.5 - Hyperlipidemia, unspecified Comprehensive Thorp. Panel Fast 4 Months E78.00 - Pure hypercholesterolemia, unspecified Medications: New Ventolin HFA 90 mcg/actuation (albuterol sulfate) 2 puffs inhalation Q6H 30 days PRN 8 grams 3RF shortness of breath or wheezing NS J43.9 - Emphysema, unspecified Refilled fluticasone furoate-vilanterol 200-25 mcg/dose (Breo Ellipta) 1 ea PO DAILY 60 ea 3RF J43.9 - Emphysema, unspecified Discontinued albuterol sulfate 90 mcg/actuation Discontinued Reason: Insurance Denied 2 puffs inhalation Q6H 30 days PRN 8.5 grams 6RF bronchospasm ipratropium-albuterol 0.5 mg-3 mg(2.5 mg base)/3 mL Discontinued Reason: Patient Completed Course 3 mL inhalation QID 30 days 180 mL 6RF R91.8 - Other nonspecific abnormal finding of lung field Combivent Respimat 20-100 mcg/actuation (ipratropium-albuterol) Discontinued Reason: Insurance Denied 1 puff inhalation Q6H 30 days 4 grams 6RF NS Coding Level of Care Code Est Pt Prev Care 40-64y(68436) Diagnoses Physical exam Z00.00 Pulmonary emphysema, unspecified emphysema type J43.9 Emphysema type: unspecified Time Spent (min) 32
[2023-05-24 13:29] VITALS: BP 186/90; BMI 34.0
[2023-05-24 13:55] VITALS: BP 180/90
== END 2023-05-24 13:51 | disposition home or self-care (01) ==
PROVIDERS: PCP Internal Medicine; Visit Provider Internal Medicine
DX: Z00.00 Encounter for general adult medical examination without abnormal findings (principal); J43.9 Emphysema, unspecified
CPT/HCPCS: 99396

== ENCOUNTER 2023-07-04 08:13 | Outpatient (AMB) | payer OTHER, SELFPAY ==
[2023-07-04 08:32] VITALS: BP 180/90; PULSE 80; BMI 34.0
--- NOTE | 2023-07-04 08:32 | MHC.OFFVIS ---
Intake Vital Signs 07/04/23 08:32 Height 5 ft Weight 174 lb BMI 34.0 BP 180/90 H Blood Pressure Location Lt brachial Position Sitting Pulse 80 Intake Visit Reasons: Stereo biopsy Left breast for calcifications Intake Note: Patient here for stereo bx. Lt breast calcifications. Recent mammo on 05-16-24. Patient c/o: denies rash, itch, pain. 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 Required: No Accompanied by: Self / Same As Patient Allergies amlodipine Adverse Reaction (Verified 07/04/23 08:33) leg edema Medication List - Last Reconciled 07/04/23 by Phan Louis MD aspirin (Adult Aspirin Regimen) 81 mg PO DAILY 90 days atorvastatin 80 mg PO BEDTIME 90 days cholecalciferol (vitamin D3) 50 mcg PO DAILY 90 days fluticasone furoate-vilanterol 200-25 mcg/dose (Breo Ellipta) 1 ea PO DAILY hydralazine 50 mg PO TID 90 days losartan 100 mg PO DAILY 90 days Ventolin HFA 90 mcg/actuation (albuterol sulfate) 2 puffs inhalation Q6H PRN 30 days NS HPI HPI Comments History of Present Illness Details Patient presents status post screening mammogram demonstrated suspicious left breast microcalcifications. Patient has no breast symptoms or complaints. She does occasionally do self-breast exams. She denies any specific complaints of pain, mass, discharge, or skin changes. Her weight, energy, and appetite are all stable. Family history no obvious breast cancer history that she recalls. Patient had a right stereotactic biopsy approximately year ago which is not in our system but she says was benign. Chart was reviewed and patient evaluated [facility] Medical History Lichen sclerosus History of abnormal cervical Pap smear Left knee pain Cough Hypovitaminosis D Pure hypercholesterolemia Essential hypertension Left hip pain Surgical History History of loop electrical excision procedure (LEEP) History of ectopic History of laparoscopic cholecystectomy Family History Father Diabetes Hypertension Mother No problems noted. 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 Chest Other: Bilateral breast exam demonstrates no obvious mass, discharge, skin changes, or tenderness. GI Other: Abdomen corpulent, soft, benign. No obvious organomegaly Assessment & Plan Assessment & Plan (1) Microcalcification of left breast on mammogram: Code(s): R92.0 - Mammographic microcalcification found on diagnostic imaging of breast Plan: Patient is scheduled for stereotactic left breast biopsy for today. She will see me in proximal weeks time to review the results or p.r.n... All questions answered. Orders: Orders MM stereotactic biopsy LT Today R92.0 - Mammographic microcalcification found on diagnostic imaging of breast Quality Reporting (2020) Adult ([facility] 138/07/21/68) Smoking risk assessment performed?: Yes Patient Tobacco Use Status: Current everyday Tobacco user Coding Level of Care Code New Pt Level 4 (17589) Diagnoses Microcalcification of left breast on mammogram R92.0
== END 2023-07-04 08:53 | disposition home or self-care (01) ==
PROVIDERS: PCP Internal Medicine; Visit Provider Surgery
DX: R92.0 Mammographic microcalcification found on diagnostic imaging of breast (principal)
CPT/HCPCS: 99204

== ENCOUNTER 2023-07-04 09:47 | Outpatient (REF) | payer OTHER, SELFPAY ==
--- NOTE | ~2023-07-04 | MM_ITS ---
EXAMINATION: STEREOTACTIC TOMOSYNTHESIS-GUIDED VACUUM-ASSISTED BREAST BIOPSY, LEFT SPECIMEN RADIOGRAPH, LEFT POST PROCEDURE DIGITAL MAMMOGRAM, LEFT CLINICAL INFORMATION: Calcifications upper outer left breast middle one third, increasing, suspicious, for stereotactic biopsy. COMPARISON: 04/22/2023, 05/16/2023. TECHNIQUE/PROCEDURE: Informed consent was obtained from the patient after discussion of the benefits, risks, and alternatives to biopsy today. Patient appeared to understand. Gave opportunity for questions. Patient signed consent form. BIOPSY TABLE: [employer] Affirm Prone Biopsy System. LESION: Calcifications. LOCAL ANESTHESIA: 5 mL 1% lidocaine; 9 mL 1% lidocaine with epinephrine. DERMATOTOMY: Single skin kesha dermatotomy performed. NEEDLE: Toopher Eviva 9-gauge vacuum assisted core biopsy device. APPROACH: lateral medial. TARGETING: Combination of digital breast tomosynthesis and stereotactic digital mammography used for targeting. CORES: 8. CLIP: Top hat-shaped. SPECIMEN RADIOGRAPH: Specimen radiograph is taken in separate room using digital mammography. The index calcifications are in the excised cores. Only a tiny calcification remains. POST PROCEDURE UNILATERAL DIGITAL MAMMOGRAM: The post biopsy mammogram is performed in separate room using separate digital mammography equipment from the biopsy procedure. Left CC and ML views are obtained. There are scattered areas of fibroglandular density (breast composition category: b). The clip marker is has migrated approximately 3 mm lateral to the biopsy site on the CC view, however is well accurately on the ML view. The calcifications are markedly decreased at the biopsy site. No gross hematoma. The patient tolerated the procedure well. No immediate complications. Home instructions reviewed with the patient. Final pathology results are pending. MM/MM stereotactic biopsy LT IMPRESSION: 1. Digital tomosynthesis-guided core biopsy left breast with clip placement. 2. Specimen radiograph taken and post procedure mammogram. The top hat-shaped biopsy clip has migrated approximately 3 mm lateral from the biopsy site, however is accurately located in the ML projection. 3. Final pathology results pending. An addendum report will be issued.
[2023-07-04] MEDS: Lidocaine HCl 1 % 20 ML VIAL 5 ML SUBCUT (10:40)
[2023-07-04] MEDS: Sodium Bicarbonate 8.4% 50 MEQ/50 ML VIAL SUBCUT (10:41)
[2023-07-04] MEDS: Lidocaine HCl 1%/Epi 1:100,000 10 ML VIAL 19 ML SUBCUT (10:43)
== END 2023-07-04 09:48 | disposition home or self-care (01) ==
LOC: HO.MAMMO 09:47
PROVIDERS: PCP Internal Medicine; Visit Provider Surgery
DX: R92.0 Mammographic microcalcification found on diagnostic imaging of breast (principal)
CPT/HCPCS: 19081; 88305; 99202; A4648

== ENCOUNTER → 2023-07-04 10:00 | Outpatient (BNV) | payer OTHER, SELFPAY | PROVIDERS: PCP Internal Medicine; Visit Provider Radiology Diagnostic Radiology | DX: R92.0 Mammographic microcalcification found on diagnostic imaging of breast (principal) | CPT/HCPCS: 19081; 77065 ==

== ENCOUNTER 2023-07-11 11:31 | Outpatient (AMB) | payer OTHER, SELFPAY ==
[2023-07-11 11:37] VITALS: BP 160/90; PULSE 80
--- NOTE | 2023-07-11 11:37 | MHC.OFFVIS ---
Intake Vital Signs 07/11/23 11:37 Weight 174 lb BP 160/90 H Blood Pressure Location Lt brachial Position Sitting Pulse 80 Intake Visit Reasons: Discuss results St bx Lt br for calc Intake Note: Patient here to discuss ST bx Lt breast for calcifications on 07-04-23. 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 Required: No Accompanied by: Self / Same As Patient Allergies amlodipine Adverse Reaction (Verified 07/11/23 11:37) leg edema Medication List - Last Reconciled 07/11/23 by Phan Louis MD aspirin (Adult Aspirin Regimen) 81 mg PO DAILY 90 days atorvastatin 80 mg PO BEDTIME 90 days cholecalciferol (vitamin D3) 50 mcg PO DAILY 90 days fluticasone furoate-vilanterol 200-25 mcg/dose (Breo Ellipta) 1 ea PO DAILY hydralazine 50 mg PO TID 90 days losartan 100 mg PO DAILY 90 days Ventolin HFA 90 mcg/actuation (albuterol sulfate) 2 puffs inhalation Q6H PRN 30 days NS HPI HPI Comments History of Present Illness Details Status post stereotactic left breast biopsy. Pathology is benign. Patient has some bruising at the biopsy site but no other issues. [facility] Medical History Lichen sclerosus History of abnormal cervical Pap smear Left knee pain Cough Hypovitaminosis D Pure hypercholesterolemia Essential hypertension Left hip pain Surgical History History of loop electrical excision procedure (LEEP) History of ectopic History of laparoscopic cholecystectomy Family History Father Diabetes Hypertension Mother No problems noted. 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 Resolving ecchymosis left upper outer quadrant breast Assessment & Plan Assessment & Plan (1) Microcalcification of left breast on mammogram: Code(s): R92.0 - Mammographic microcalcification found on diagnostic imaging of breast Plan: Current plan is see the patient approximate 6 months time for post procedure mammogram. The patient is encouraged to do self-breast exams periodic in the meantime. She will see me as directed or p.r.n.. All questions answered. Orders: Orders MM diagnostic mammo unilat LT 6 Months R92.0 - Mammographic microcalcification found on diagnostic imaging of breast Quality Reporting (2020) Adult ([facility] ) Smoking risk assessment performed?: Yes Patient Tobacco Use Status: Current everyday Tobacco user Coding Level of Care Code Est Pt Level 4 (65110) Diagnoses Microcalcification of left breast on mammogram R92.0
== END 2023-07-11 11:37 | disposition home or self-care (01) ==
PROVIDERS: PCP Internal Medicine; Visit Provider Surgery
DX: R92.0 Mammographic microcalcification found on diagnostic imaging of breast (principal)
CPT/HCPCS: 99214

== ENCOUNTER → 2023-07-11 11:31 | Outpatient (BNVA) | payer OTHER, SELFPAY | PROVIDERS: PCP Internal Medicine; Visit Provider Surgery | DX: R92.0 Mammographic microcalcification found on diagnostic imaging of breast (principal) | CPT/HCPCS: 99212 ==

== ENCOUNTER 2023-10-26 07:39 | Outpatient (AMB) | payer OTHER, SELFPAY ==
[2023-10-26 07:43] VITALS: BP 158/90; BMI 33.2
--- NOTE | 2023-10-26 07:43 | A.OFFPC_ITS ---
Vital Signs 10/26/23 07:43 10/26/23 08:02 Height 5 ft Weight 170 lb BMI 33.2 BP 158/90 H 150/90 H Blood Pressure Location Lt brachial Lt brachial Position Sitting Sitting Pulse 78 Pulse Source Pulse Oximeter Pulse Oximetry (%) 97 Oxygen Delivery Method Room Air Intake Visit Reasons: BP- see comments Intake Note: Patient here for a follow up BP Delivery Room Clerk Required: No Accompanied by: Self / Same As Patient Allergies amlodipine Adverse Reaction (Verified 10/26/23 07:53) leg edema Medication List - Last Reconciled 10/26/23 by Megan Grant MD aspirin (Adult Aspirin Regimen) 81 mg PO DAILY 90 days atorvastatin 80 mg PO BEDTIME 90 days cholecalciferol (vitamin D3) 50 mcg PO DAILY 90 days fluticasone furoate-vilanterol 200-25 mcg/dose (Breo Ellipta) 1 ea PO DAILY hydralazine 50 mg PO TID 90 days losartan 100 mg PO DAILY 90 days Ventolin HFA 90 mcg/actuation (albuterol sulfate) 2 puffs inhalation Q6H PRN 30 days NS Tobacco use date assessed: 10/26/23 Dental Screening Dental Screen Date: 10/26/23 Did you have a dental visit in the last 12 months?: No Did you have a dental problem in the last 6 months where you did not have access to dental care?: No Was dental information given to patient?: Patient has dentist HPI HPI Comments History of Present Illness Details This is a 58-year-old female with hypertension, pure hypercholesterolemia, emphysema and mild major depression that comes today for follow-up on her conditions. Blood pressure elevated and will be recheck in 3 weeks by nurse navigator. I recommended to increase hydralazine but she d eclines it for now. Patient is aware that elevated blood pressure can cause heart attack and stroke and even . On statins for her elevated cholesterol. She has emphysema and use rescue inhaler about 2 times a month. Emphysema is follow by pulmonology. She does have mild major depression due to stressful situation with having multiple amputations and taking care of him. At the moment she declines any counseling or medication. I will follow-up in 4 months. She has a smoker and was advised to quit. [facility] Medical History (Updated 10/26/23 @ 08:10 by Megan Grant MD) Lichen sclerosus History of abnormal cervical Pap smear Left knee pain Cough Hypovitaminosis D Pure hypercholesterolemia Essential hypertension Left hip pain Surgical History History of loop electrical excision procedure (LEEP) History of ectopic History of laparoscopic cholecystectomy Family History Father Diabetes Hypertension Mother No problems noted. Sister Gynecologic cancer Maternal Uncle Prostate cancer Maternal Uncle Colon cancer Sister Cancer Brain cancer Sister Ovarian cancer Social History Housing: House Alcohol intake: never Patient Tobacco Use Status: Current everyday Tobacco user Tobacco use type: Cigarette Cigarettes Per Day: 3 e-Cigarette/Vaping Use: Never Used Second Hand Smoke Exposure: No service: No Current occupational status: unemployed Gender identity: Female Cognitive needs: No Hearing needs: No Vision needs: No Female Reproductive History Menstrual Age of Menarche: 10 Questionnaire PHQ-9 Over the last 2 weeks, how often have you been bothered by any of the following problems? 1. Little interest or pleasure in doing things: several days 2. Feeling down, depressed, or hopeless: nearly every day 3. Trouble falling or staying asleep, or sleeping too much: several days 4. Feeling tired or having little energy: nearly every day 5. Poor appetite or overeating: several days 6. Feeling bad about yourself - or that you are a failure or have let yourself or your family down: not at all 7. Trouble concentrating on things, such as reading the newspaper or watching television: not at all 8. Moving or speaking so slowly that other people could have noticed. Or the opposite - being so fidgety or restless that you have been moving around a lot more than usual: several days 9. Thoughts that you would be better off or of hurting yourself in some way: not at all Total score: 10 Depression Screening Interpretation: Positive Depression Screening Follow-up: Existing condition, In treatment, Follow-up Visit Requested and Declines treatment Depression Screening Done: Yes 59854 - PHQ-9 Billing: Yes Source: Developed by Drs. Doug Valiente, Sharon HubbardCristóbal and colleagues, with an educational vida from [employer]. Thrive Questionnaire Date Thrive assessed: 10/26/23 I am a: Patient What is your living situation today?: I have a steady place to live Within the past 12 months, did the food you bought not last and you didn't have the money to get more?: Never true Within the past 12 months, did you worry whether your food would run out before you got money to buy more?: Never true Do you have trouble paying for medicines?: No Do you have trouble getting transportation to medical appointments?: No Do you have trouble paying your heating and electricity bill?: No Do you have trouble taking care of your child, family member or friend?: No Do you have trouble with day-to-day activities such as bathing, preparing meals, shopping, managing finances, etc.?: No Are you currently unemployed and looking for a job?: No Are you interested in more education?: No Please select the resources that you would like help with: None Currently or been in a relationship where the following occur: no concerns reported THRIVE Score: 0 AUDIT C Alcohol Use Questionnaire (AUDIT-C) 1. How often do you have a drink containing alcohol?: Never Total Score: 0 NIKO-7 AMB Questionnaire NIKO-7 Date NIKO - 7 assessed: 10/26/23 Feeling nervous, anxious, or on edge: 1 = Several days Not being able to stop or control worryin = Several days Worrying too much about different things: 3 = Nearly every day Trouble relaxin = Several days Being so restless that it is hard to sit still: 0 = Not at all Becoming easily annoyed or irritable: 3 = Nearly every day Feeling afraid as if something awful might happen: 0 = Not at all Total NIKO-7 score (0-4 normal; 5-9 mild; 10-14 moderate; 15-21 severe): 9 Source: Developed by Drs. Doug Valiente, Sharon Hubbard, Cristóbal Armijo and colleagues, with an educational vida from [employer]. NIKO-7 Assessment Billing NIKO-7 Assessment Tool: NIKO-7 Assessment 68467 Review of Systems Const All systems reviewed & are unremarkable except as noted in HPI and below Card Denies chest pain at rest, Denies chest pain with activity, Denies edema, Denies irregular heart rhythm, Denies claudication, Denies dyspnea, Denies dyspnea on exertion, Denies orthopnea, Denies paroxysmal nocturnal dyspnea and Denies slow heart rate Resp Denies cough, Denies dyspnea and Denies dyspnea on exertion Physical exam (Primary Care) Vital Signs: Last Vital Signs BP 158/90 H 10/26/23 07:43 BMI result Body Mass Index 33.2 BMI Assessment/Plan discussion: High BMI High, discussed plan: lifestyle, weight reduction, dietary and physical activity Tobacco/Smoking Status: Tobacco use Status Tobacco use date assessed 08/19/22 05/24/23 13:34 Patient Tobacco Use Status Current everyday Tobacco 07/11/23 11:38 Tobacco use type Cigarette 07/04/23 08:35 e-Cigarette/Vaping Use Never Used 07/04/23 08:35 Are you ready to quit: No Tobacco cessation counseling provided: Yes Items discussed: QuitWorks Relapse Prevention: discussed the importance of a supportive environment, discussed extending NRT, discussed negative mood or depression after quitting, weight gain after smoking is common and discussed dietary, exercise and/or lifestyle changes Number of minutes spent counselin CPT code: 50016 - 4-10 Minutes Depression Screening Interpretation: Positive Depression Screening Follow-up: Existing condition, In treatment, Follow-up Visit Requested and Declines treatment Thrive Assessment: Date of Thrive Assessment Date Thrive assessed 08/19/22 06/16/23 13:28 Currently or been in a relationship where the following occur: no concerns reported Const General: alert Limitations: no limitations Resp Effort & Inspection: normal respiratory effort Auscultation: clear to auscultation bilaterally Cardio Jugular venous distension: no JVD Rate: regular rate Rhythm: regular rhythm Heart sounds: S1 normal heart sound present and S2 normal heart sound present Extrem General: Yes full ROM Psych Affect: Anxious affect present Attitude: cooperative Assessment and Plan Assessment & Plan (1) Emphysema lung: Code(s): J43.9 - Emphysema, unspecified Qualifiers: Emphysema type: unspecified Qualified Code(s): J43.9 - Emphysema, unspecified Plan: Continue Breo. Use rescue inhaler as needed. Follow-up with pulmonology. (2) Essential hypertension: Code(s): I10 - Essential (primary) hypertension Plan: Continue losartan and hydralazine. Recheck blood pressure with nurse navigator in 3 weeks. Blood pressure goal is equal or less than 130/80. (3) Pure hypercholesterolemia: Code(s): E78.00 - Pure hypercholesterolemia, unspecified Plan: Continue statins. (4) Mild major depression: Code(s): F32.0 - Major depressive disorder, single episode, mild Plan: Patient declines treatment. She will follow-up with me in 4 months regarding this matter. Coding Level of Care Code Est Pt Level 4 (90432) Diagnoses Pulmonary emphysema, unspecified emphysema type J43.9 Emphysema type: unspecified Essential hypertension I10 Pure hypercholesterolemia E78.00 Mild major depression F32.0 Additional Codes NIKO-7 Assessment Billing - NIKO-7 Assessment Tool: NIKO-7 Assessment 05789 ([id number]) Vital Signs *Quality* - CPT code: 46369 - 4-10 Minutes ([id number]) Time Spent (min) 25
[2023-10-26 08:02] VITALS: BP 150/90; PULSE 78; O2SAT 97
== END 2023-10-26 08:09 | disposition home or self-care (01) ==
PROVIDERS: PCP Internal Medicine; Visit Provider Internal Medicine
DX: J43.9 Emphysema, unspecified (principal); F32.0 Major depressive disorder, single episode, mild; I10 Essential (primary) hypertension; E78.00 Pure hypercholesterolemia, unspecified
CPT/HCPCS: 99214

== ENCOUNTER 2024-01-17 10:37 | Outpatient (REF) | payer OTHER, SELFPAY | END 2024-01-17 10:38 | disposition home or self-care (01) | LOC: HO.MAMMO 10:37 | PROVIDERS: PCP Internal Medicine; Visit Provider Surgery | DX: Z13.89 Encounter for screening for other disorder (principal) ==

== ENCOUNTER 2024-03-21 07:58 | Outpatient (AMB) | payer OTHER, SELFPAY ==
--- NOTE | 2024-03-21 08:08 | MHC.OFFVIS ---
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 She is doing well with no concerns: she forgot her BP meds today, had coffee and cigarettes before arriving to the office. She admits to taking care of her for the last 6 months with amputation. Attempting to eat a healthy diet vitamin D and stays active with exercise w/walking. Currently not sexually active. Denies any vaginal dryness or irritation. STI testing offered; she declined. Last pap smear; 2021, negative. Last mammogram; 2022. Colonoscopy is UTD. Denies any family history of breast or colon cancer. Family history of ovarian cancer-sister. [facility] Medical History History of abnormal cervical Pap smear Left knee pain Cough Hypovitaminosis D Pure hypercholesterolemia Essential hypertension Left hip pain Surgical History History of loop electrical excision procedure (LEEP) History of ectopic History of laparoscopic cholecystectomy Family History Father Diabetes Hypertension Mother No problems noted. Sister Gynecologic cancer Maternal Uncle Prostate cancer Maternal Uncle Colon cancer Sister Cancer Brain cancer Sister Ovarian cancer Social History Housing: House Alcohol intake: never Patient Tobacco Use Status: Current everyday Tobacco user Tobacco use type: Cigarette Cigarettes Per Day: 3 e-Cigarette/Vaping Use: Never Used Second Hand Smoke Exposure: No service: No Current occupational status: unemployed Gender identity: Female Cognitive needs: No Hearing needs: No Vision needs: No Female Reproductive History Menstrual Age of Menarche: 10 Menopause type: natural Total pregnancies: 3 Number of Living Children: 2 Ectopics: 1 Date of last pap smear: 09/29/21 (neg pap and hpv) History of abnormal pap smear: Yes (see intake note) Date of Mammogram: 04/22/23 (0) History of abnormal mammogram: Yes (05/16/23 Birad 4 bx 07/04/23 Birad 2) Review of Systems Const All systems reviewed & are unremarkable except as noted in HPI and below Reports as per HPI Eyes Reports no additional complaints ENT Reports no additional complaints Card Reports no additional complaints Resp Reports no additional complaints GI Reports as per HPI and Reports no additional complaints Reports as per HPI Musc Reports no additional complaints Skin/Breast Reports as per HPI Neuro Reports no additional complaints Psych Reports no additional complaints Endo Reports no additional complaints Antelmo/Lymph Reports no additional complaints Aller/Immun Reports no additional complaints Physical Exam Vital Signs: Last Vital Signs Pulse 73 03/21/24 08:41 BP 192/94 H 03/21/24 08:41 Pulse Ox 97 03/21/24 08:41 BMI result Body Mass Index 33.6 Const General: cooperative, healthy appearing, no acute distress, well developed and alert Orientation/consciousness: patient oriented x3 HEENT Head: Yes normal to inspection Eyes General: appearance normal, both eyes and all related structures Neck Neck: Yes normal visual inspection Thyroid: Thyroid normal Chest Chest palpation & inspection: normal inspection of the chest and other (no puckering, dimpling, peau de orange, retraction, discharge, masses) Breast/axilla inspection: normal inspection of the breasts Breast/axilla palpation: normal palpation of the breasts Resp Effort & Inspection: normal respiratory effort GI Inspection: Yes normal to inspection Palpation (GI): Soft to palpation Rectal Exam - Female: deferred General: Yes bladder normal to palpation External Female Exam: normal external appearance and normal appearance of the urethra Speculum Exam - Vagina: normal appearance of the vagina, normal palpation, normal vaginal discharge and vagina atrophic Speculum Exam - Cervix: normal appearance of the cervix, normal palpation and Other cervical findings present (Post LEEP appearance) Bimanual exam- vagina & uterus: normal bimanual exam, normal palpation, uterine size normal, bladder normal to palpation, normal palpation and non-tender Bimanual Exam- Adnexa, other: no masses Skin General skin exam: no rashes or lesions noted Rashes: no rashes Neuro General: patient oriented x3 Cognition (Neuro): normal cognition Extrem General: Yes normal to inspection Psych Attitude: cooperative Thought process: Normal thought process present Quality Reporting (2019) Adult ([facility] 138/07/21/68) Smoking risk assessment performed?: Yes Patient Tobacco Use Status: Current everyday Tobacco user Assessment & Plan Assessment & Plan (1) Encounter for well woman exam with routine gynecological exam: Code(s): Z01.419 - Encounter for gynecological examination (general) (routine) without abnormal findings Category: Medical Plan Discussed: Current recommendations for pap smears per ASCCP guidelines. Breast awareness, periodic self breast exams and yearly mammogram. Maintain a healthy lifestyle, well balanced diet including Calcium 1,200 mg and Vitamin D 600 IU daily, calcium handout provided, and routine exercise. Discussed importance of taking antihypertensive meds on time, and effects of cigarettes and caffeine with blood pressure. Encouraged self care. Contact the office with any postmenopausal bleeding. Patient verbalizes understanding and agrees to the plan of care. She was given opportunity to ask questions and all questions were answered to the best of my ability. RTO in 1 year for annual corporation pilot exam. This note is constructed using voice recognition software. While every effort has been made to ensure accuracy, steam hammer operator errors may have been included. Coding Level of Care Code Est Pt Prev Care 40-64y(98878) Diagnoses Encounter for well woman exam with routine gynecological exam Z01.419
[2024-03-21 08:10] VITALS: BP 200/94; BMI 33.6
[2024-03-21 08:41] VITALS: BP 192/94; PULSE 73; O2SAT 97
== END 2024-03-21 08:43 | disposition home or self-care (01) ==
PROVIDERS: PCP Internal Medicine; Visit Provider Advanced Practice Midwife
DX: Z01.419 Encounter for gynecological examination (general) (routine) without abnormal findings (principal)
CPT/HCPCS: 99396

== ENCOUNTER → 2024-03-21 07:58 | Outpatient (BNVA) | payer OTHER, SELFPAY | PROVIDERS: PCP Internal Medicine; Visit Provider Advanced Practice Midwife | DX: Z01.419 Encounter for gynecological examination (general) (routine) without abnormal findings (principal) | CPT/HCPCS: 99396 ==

== ENCOUNTER 2024-04-23 08:22 | Outpatient (REF) | payer OTHER, SELFPAY ==
--- NOTE | ~2024-04-23 | MM_ITS ---
EXAMINATION: MM SCREENING DIGITAL BREAST TOMOSYNTHESIS, BILATERAL CLINICAL INFORMATION: Screening. Asymptomatic. COMPARISON: Mammography: Comparison is made with available priors TECHNIQUE: Digital breast mammography with tomosynthesis is performed in both the craniocaudal and mediolateral oblique views along with computer-aided detection (CAD). FINDINGS: The breasts are heterogeneously dense, which may obscure small masses (ACR BI-RADS breast composition Category c). Bilateral marker clips. There are no significant masses, abnormal calcifications, or other abnormalities. MM/MM tomosynthesis screening BI IMPRESSION: No mammographic evidence of malignancy. ASSESSMENT: BI-RADS BI-RADS 2 - Benign Findings RECOMMENDATION: Routine annual mammography screening. 1 year F/U This examination should not preclude the clinical evaluation of a suspicious palpable abnormality. This patient's information was entered into a reminder system with a target due date for their next mammogram. Electronically signed by: Maria Del Carmen Riggins DO 05/02/2024 12:27 PM JESENIA
== END 2024-04-23 08:23 | disposition home or self-care (01) ==
LOC: HO.MAMMO 08:22
PROVIDERS: PCP Internal Medicine; Visit Provider Internal Medicine
DX: Z12.31 Encounter for screening mammogram for malignant neoplasm of breast (principal)
CPT/HCPCS: 77063; 77067

== ENCOUNTER → 2024-04-23 08:45 | Outpatient (BNV) | payer OTHER, SELFPAY | PROVIDERS: PCP Internal Medicine; Visit Provider Internal Medicine | DX: Z12.31 Encounter for screening mammogram for malignant neoplasm of breast (principal) | CPT/HCPCS: 77063; 77067 ==

== ENCOUNTER 2024-05-07 09:00 | Outpatient (AMB) | payer OTHER, SELFPAY ==
--- NOTE | 2024-05-07 09:04 | MHC.OFFVIS ---
Vital Signs 05/07/24 09:08 Height 5 ft Weight 169 lb BMI 33.0 BP 188/98 H Blood Pressure Location Rt brachial Position Sitting Pulse 68 Intake Visit Reasons: MM BI Intake Note: Patient here to discuss recent MM results. Hx of Lt br calcifications. Patient c/o: no concerns. Mammo: 04-23-2024. Replenishment Specialist Required: No Accompanied by: Self / Same As Patient Allergies amlodipine Adverse Reaction (Verified 05/07/24 09:09) leg edema HPI Comments Details: Patient presents for breast surveillance follow-up. She has no breast issues or complaints. She does periodic breast exams. Recent mammogram was within normal limits and recommendation is for 1 year follow-up. [facility] Medical History History of abnormal cervical Pap smear Left knee pain Cough Hypovitaminosis D Pure hypercholesterolemia Essential hypertension Left hip pain Surgical History History of loop electrical excision procedure (LEEP) History of ectopic History of laparoscopic cholecystectomy Family History Father Diabetes Hypertension Mother No problems noted. Sister Gynecologic cancer Maternal Uncle Prostate cancer Maternal Uncle Colon cancer Sister Cancer Brain cancer Sister Ovarian cancer Social History Housing: House Alcohol intake: never Patient Tobacco Use Status: Current everyday Tobacco user Tobacco use type: Cigarette Cigarettes Per Day: 3 e-Cigarette/Vaping Use: Never Used Second Hand Smoke Exposure: No service: No Current occupational status: unemployed Gender identity: Female Cognitive needs: No Hearing needs: No Vision needs: No Female Reproductive History Menstrual Age of Menarche: 10 Physical Exam Vital Signs: Last Vital Signs Pulse 68 05/07/24 09:08 BP 188/98 H 05/07/24 09:08 BMI result Body Mass Index 33.0 Chest Other: Bilateral breast exam demonstrates no obvious mass, discharge, skin changes bilaterally. No periclavicular cervical or axillary adenopathy bilaterally. GI Other: Abdomen corpulent, soft, benign Quality Reporting (2019) Adult ([facility] 138/2/) Smoking risk assessment performed?: Yes Patient Tobacco Use Status: Current everyday Tobacco user Assessment & Plan Assessment & Plan (1) Encounter for follow-up surveillance of breast cancer: Code(s): Z08 - Encounter for follow-up examination after completed treatment for malignant neoplasm; Z85.3 - Personal history of malignant neoplasm of breast Category: Surgical Plan Patient is encouraged to continue breast exams periodically. She has been to see me in 1 year's time with follow-up screening mammogram or p.r.n.. All questions answered Coding Level of Care Code Est Pt Level 4 (49268) Diagnoses Encounter for follow-up surveillance of breast cancer Z08; Z85.3
[2024-05-07 09:08] VITALS: BP 188/98; PULSE 68; BMI 33.0
== END 2024-05-07 09:18 | disposition home or self-care (01) ==
PROVIDERS: PCP Internal Medicine; Visit Provider Surgery
DX: Z08 Encounter for follow-up examination after completed treatment for malignant neoplasm (principal); Z85.3 Personal history of malignant neoplasm of breast
CPT/HCPCS: 99214

== ENCOUNTER → 2024-05-07 09:00 | Outpatient (BNVA) | payer OTHER, SELFPAY | PROVIDERS: PCP Internal Medicine; Visit Provider Surgery | DX: Z08 Encounter for follow-up examination after completed treatment for malignant neoplasm (principal); Z85.3 Personal history of malignant neoplasm of breast | CPT/HCPCS: 99212 ==

== ENCOUNTER 2024-05-29 08:14 | Outpatient (AMB) | payer OTHER, SELFPAY ==
--- NOTE | 2024-05-29 08:17 | MHC.PC.OV ---
Vital Signs 05/29/24 08:19 Height 5 ft Weight 169 lb BMI 33.0 BP 158/80 H Blood Pressure Location Lt brachial Position Sitting Intake Visit Reasons: Annual PE Intake Note: Patient here for an annual physical exam Field Return Repairer Required: No Accompanied by: Self / Same As Patient Allergies amlodipine Adverse Reaction (Verified 05/29/24 08:37) leg edema Medication List - Last Reconciled 05/29/24 by Megan Grant MD aspirin (Adult Aspirin Regimen) 81 mg PO DAILY 90 days atorvastatin 80 mg PO BEDTIME 90 days cholecalciferol (vitamin D3) 50 mcg PO DAILY 90 days fluticasone furoate-vilanterol 200-25 mcg/dose (Breo Ellipta) 1 ea PO DAILY hydralazine 50 mg PO TID 90 days losartan 100 mg PO DAILY 90 days Ventolin HFA 90 mcg/actuation (albuterol sulfate) 2 puffs inhalation Q6H PRN 30 days NS Tobacco use date assessed: 10/26/23 Dental Screening Dental Screen Date: 10/26/23 HPI HPI Comments History of Present Illness Details The patient is a 58-year-old female presenting with her annual physical examination. She has a history of hypertension managed with losartan and hydralazine. The patient reports chronic leg edema attributed to amlodipine that now resolved after discontinuing it. Additionally, she has a lung disease, possibly chronic obstructive in nature, as indicated by the use of Breo and prior trial of Trelegy, which was not well-tolerated. She experiences exertional dyspnea, particularly when climbing stairs, requiring assistance from her son with household tasks such as laundry. Also has mild major depression but declines any treatment at the moment. The patient has a past surgical history of cholecystectomy in 2018 and an ectopic removal. She was advised to receive the pneumonia vaccine before age 65 due to lung conditions. The patient has a family history of her father passing away with diabetes and hypertension. Screenings done previously include a colonoscopy in 2018 revealing hyperplastic polyps, recommended to be repeated in 2027. A mammogram performed last year identified benign calcifications; a recent repeat mammogram last month was normal. Additionally, a Pap smear with HPV testing was negative, and a prior cervical biopsy in 2021 showed no malignancy. 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 The patient reports occasional production of mucus nuggets when coughing, which she associates with potential bacterial presence. She applied for disability recently and experiences difficulty with the associated paperwork. - Discussed need for pneumococcal vaccine before 65 years due to lung condition - Recommended flu vaccination as not yet received this year - Reviewed colonoscopy history with next due in 2027 - Concluded benign findings from breast biopsy; recent mammogram is completely normal - Regular Pap smear and HPV testing completed with negative results; recommended follow-ups determined by previous biopsy in 2021 were normal - Advised on smoking cessation benefits; discussed nicotine patches or replacement therapy - Reviewed obesity status; encouraged weight loss through lifestyle modification - Recommended bone density test due to no record for the past two years - Advised blood work to be repeated soon to assess cholesterol, sugar, kidney, and liver function [facility] Medical History History of abnormal cervical Pap smear Left knee pain Cough Hypovitaminosis D Pure hypercholesterolemia Essential hypertension Left hip pain Surgical History History of loop electrical excision procedure (LEEP) History of ectopic History of laparoscopic cholecystectomy Family History Father Diabetes Hypertension Mother No problems noted. Sister Gynecologic cancer Maternal Uncle Prostate cancer Maternal Uncle Colon cancer Sister Cancer Brain cancer Sister Ovarian cancer Social History (Updated 05/29/24 @ 08:44 by Megan Grant MD) Housing: House Alcohol intake: never Patient Tobacco Use Status: Current everyday Tobacco user Tobacco use type: Cigarette Cigarettes Per Day: 4 e-Cigarette/Vaping Use: Never Used Second Hand Smoke Exposure: No service: No Current occupational status: unemployed Gender identity: Female Cognitive needs: No Hearing needs: No Vision needs: No Female Reproductive History Menstrual Age of Menarche: 10 Questionnaire PHQ-9 Over the last 2 weeks, how often have you been bothered by any of the following problems? 1. Little interest or pleasure in doing things: more than half the days 2. Feeling down, depressed, or hopeless: more than half the days 3. Trouble falling or staying asleep, or sleeping too much: nearly every day 4. Feeling tired or having little energy: nearly every day 5. Poor appetite or overeating: several days 6. Feeling bad about yourself - or that you are a failure or have let yourself or your family down: not at all 7. Trouble concentrating on things, such as reading the newspaper or watching television: several days 8. Moving or speaking so slowly that other people could have noticed. Or the opposite - being so fidgety or restless that you have been moving around a lot more than usual: several days 9. Thoughts that you would be better off or of hurting yourself in some way: not at all Total score: 13 Depression Screening Interpretation: Positive Depression Screening Follow-up: Existing condition, Follow-up Visit Requested and Declines treatment Depression Screening Done: Yes 10296 - PHQ-9 Billing: Yes Source: Developed by Drs. Doug Valiente, Sharon Hubbard, Cristóbal Armijo and colleagues, with an educational vida from [employer]. Thrive Questionnaire Date Thrive assessed: 05/29/24 I am a: Patient What is your living situation today?: I have a steady place to live Within the past 12 months, did the food you bought not last and you didn't have the money to get more?: Never true Within the past 12 months, did you worry whether your food would run out before you got money to buy more?: Sometimes True Do you have trouble paying for medicines?: No Do you have trouble getting transportation to medical appointments?: No Do you have trouble paying your heating and electricity bill?: Yes Do you have trouble taking care of your child, family member or friend?: No Do you have trouble with day-to-day activities such as bathing, preparing meals, shopping, managing finances, etc.?: No Are you currently unemployed and looking for a job?: Yes Are you interested in more education?: No Please select the resources that you would like help with: None Currently or been in a relationship where the following occur: No concerns reported THRIVE Score: 2 AUDIT C Alcohol Use Questionnaire (AUDIT-C) 1. How often do you have a drink containing alcohol?: Never Total Score: 0 Score Reviewed/Action Taken: No NIKO-7 AMB Questionnaire NIKO-7 Date NIKO - 7 assessed: 10/26/23 Feeling nervous, anxious, or on edge: 1 = Several days Not being able to stop or control worryin = Several days Worrying too much about different things: 3 = Nearly every day Trouble relaxin = Several days Being so restless that it is hard to sit still: 1 = Several days Becoming easily annoyed or irritable: 1 = Several days Feeling afraid as if something awful might happen: 0 = Not at all Total NIKO-7 score (0-4 normal; 5-9 mild; 10-14 moderate; 15-21 severe): 8 Source: Developed by Drs. Doug Valiente, Sharon Hubbard, Cristóbal Armijo and colleagues, with an educational vida from [employer]. NIKO-7 Assessment Billing NIKO-7 Assessment Tool: NIKO-7 Assessment 81015 Review of Systems Const Details: - Respiratory: Reports shortness of breath when climbing stairs; frequent coughing with mucus production - Dermatologic: No mention of significant skin issues besides chronic lipomas Physical exam (Primary Care) Vital Signs: Last Vital Signs BP 158/80 H 05/29/24 08:19 Care Plan Goal for BP management: Hydralazine will be increased Next steps: Blood pressure will be recheck in 3 weeks by nurse navigator BMI result Body Mass Index 33.0 BMI Assessment/Plan discussion: High BMI High, discussed plan: lifestyle, weight reduction, dietary and physical activity Tobacco/Smoking Status: Tobacco use Status Tobacco use date assessed 10/26/23 05/29/24 08:25 Patient Tobacco Use Status Current everyday Tobacco 05/29/24 08:44 Tobacco use type Cigarette 05/29/24 08:44 e-Cigarette/Vaping Use Never Used 05/29/24 08:44 Are you ready to quit: No Tobacco cessation counseling provided: Yes Relapse Prevention: discussed the importance of a supportive environment, discussed extending NRT, discussed negative mood or depression after quitting, weight gain after smoking is common and discussed dietary, exercise and/or lifestyle changes Number of minutes spent counselin CPT code: 96714 - 4-10 Minutes PHQ-9: PHQ-9 Score PHQ-9: Total score 13 05/29/24 08:52 Depression Screening Interpretation: Positive Depression Screening Follow-up: Existing condition, Follow-up Visit Requested and Declines treatment Thrive Assessment: Date of Thrive Assessment Date Thrive assessed 05/29/24 05/29/24 08:25 Currently or been in a relationship where the following occur: No concerns reported Const Other: General: Cooperative, healthy appearing, comfortable, no acute distress and well developed Orientation: Patient oriented x3 Limitations: Shortness of breath during the stairs Head: Normal to inspection Ears: Hearing grossly normal bilaterally Nose: Normal external nose present Face and sinus: Normal facial exam Eyes: Appearance normal, both eyes and all related structures Neck: Normal visual inspection and Yes full ROM Respiratory: Normal respiratory effort and able to speak in complete sentences. Clear to auscultation bilaterally Cardiovascular: Regular rate and rhythm. Normal S1 and S2 GI: Normal to inspection. Soft to palpation and nontender Skin: No rashes or lesions noted, skin lump in right clavicular area and left upper back close to the shoulder Neuro: Patient oriented x3 Extremities: Normal to inspection, but reports leg edema due to amlodipine use Office Procedures Flu Questionnaire Does the patient have a severe egg allergy?: No Does the patient have severe life threatening allergies?: No Does the patient have a fever or illness today?: No Has the patient ever had Guillain-Kim Syndrome?: No Has the patient ever had any past reaction to a flu shot?: No Immunizations Fluarix Triv [id number] (PF) 45 mcg (15 mcg x 3)/0.5 mL IM syringe Performing Provider: Megan Grant MD Performing Location: [facility] Administered by: RICHARD Nix on 05/29/24 08:28 Dose Route Admin Location Dispensed Lot Number Expiration Date [facility] Library Circulation Clerk 0.5 mL IM Left Deltoid 0.5 mL [id number] 11/26/24 [id number] [employer] VIS Given Date VIS Provided VIS Publication Date 05/29/24 Single Vaccine 21 Eligibility Eligibility Date Funding Source Not VFC Eligible 05/29/24 Private pneumoc 20-loida conj-dip cr(PF) 0.5 mL IM syringe Performing Provider: Megan Grant MD Performing Location: [facility] Administered by: RICHARD Nix on 05/29/24 09:00 Dose Route Admin Location Dispensed Lot Number Expiration Date [facility] Library Circulation Clerk 0.5 mL IM Right Deltoid 0.5 mL [id number] 08/28/25 [id number] [employer] VIS Given Date VIS Provided VIS Publication Date 05/29/24 Single Vaccine 21 Eligibility Eligibility Date Funding Source Not [facility] Eligible 05/29/24 Private Coding Level of Care Code Est Pt Level 3 (22956) Est Pt Prev Care 40-64y(79270) Diagnoses Physical exam Z00.00 Mild major depression F32.0 Pulmonary emphysema, unspecified emphysema type J43.9 Emphysema type: unspecified Lump of skin R22.9 Additional Codes NIKO-7 Assessment Billing - NIKO-7 Assessment Tool: NIKO-7 Assessment 61324 ([id number]) PHQ-9 - 36275 - PHQ-9 Billing: Yes ([id number]) Vital Signs *Quality* - CPT code: 17416 - 4-10 Minutes ([id number]) Time Spent (min) 38 Assessment & Plan Assessment & Plan (1) Physical exam: Code(s): Z00.00 - Encounter for general adult medical examination without abnormal findings Category: Medical (2) Mild major depression: Code(s): F32.0 - Major depressive disorder, single episode, mild Category: Medical (3) Emphysema lung: Code(s): J43.9 - Emphysema, unspecified Category: Medical Qualifiers: Emphysema type: unspecified Qualified Code(s): J43.9 - Emphysema, unspecified (4) Lump of skin: Code(s): R22.9 - Localized swelling, mass and lump, unspecified Category: Medical Plan - Initiate pneumococcal and influenza vaccination - Bone density test to be ordered due to lack of recent recording - Monitor and manage hypertension with consideration to adjust medications due to leg edema - Repeat colonoscopy to be scheduled for 2027 barring any new risk factors - Smoking cessation counseling and potential use of nicotine replacement therapy - Reinforce weight management through lifestyle modifications - Follow up with pulmonary for evaluation of respiratory complaints and medication management - Investigate chronic lipomas surgically after surgical referral - Regular follow-up bloodwork for cholesterol, sugar, and liver and kidney function - Monitor mental health with possible further intervention if PHQ-9 remains elevated Patient was informed and verbally consented to the use of an ambient scribe for clinic note documentation during this visit. During the visit, I discussed the vital nature of updating vaccinations, particularly the pneumonia vaccine due to lung issues. The need for an annual flu vaccine was reiterated. We engaged in an in-depth conversation about her smoking habit encouraging the use of nicotine patches or alternatives due to her high BMI. We explored options for weight loss, emphasizing the reduction of health risks associated with obesity. Given the patient?s cardiovascular history and uncontrolled hypertension, updating her treatment regimen regarding edema-related medications was examined. The prior screening tests were reviewed, affirming her benign status and timeline for subsequent procedures. 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 Orders: Orders Pneumococcal 20 Immunization Today Z23 - Encounter for immunization Lipid Panel Today E78.5 - Hyperlipidemia, unspecified Vitamin D 25-OH Total Today E55.9 - Vitamin D deficiency, unspecified Comprehensive [place]. Panel Fast Today Z00.00 - Encounter for general adult medical examination without abnormal findings Influenza [id number] Immunization Today Z23 - Encounter for immunization XR DEXA axial skeleton Today Z78.0 - Asymptomatic menopausal state Referrals General Surgery Referral R22.9 - Localized swelling, mass and lump, unspecified Medications: New hydralazine 100 mg PO TID 270 tabs 1RF 90 days I10 - Essential (primary) hypertension pneumoc 20-loida conj-dip cr(PF) 0.5 mL IM ONCE 0.5 mL 0RF Z23 - Encounter for immunization Discontinued hydralazine Discontinued Reason: Patient Completed Course 50 mg PO TID 90 days 270 tabs 1RF Patient Instructions: - Schedule and receive pneumonia and influenza vaccines - Maintain current medication regimen and monitor for leg swelling - Arrange pulmonary follow-up for respiratory assessment and medication review - Pursue strategies for smoking reduction and consider nicotine replacement options - Focus on dietary modifications and regular physical activity for weight loss - Complete scheduled lab work for comprehensive metabolic panel updates - Consult healthcare provider if experiencing worsening symptoms or concerns related to leg swelling or respiratory changes
[2024-05-29 08:19] VITALS: BP 158/80; BMI 33.0
== END 2024-05-29 09:02 | disposition home or self-care (01) ==
PROVIDERS: PCP Internal Medicine; Visit Provider Internal Medicine
DX: Z00.00 Encounter for general adult medical examination without abnormal findings (principal); F32.0 Major depressive disorder, single episode, mild; J43.9 Emphysema, unspecified; R22.9 Localized swelling, mass and lump, unspecified; Z23 Encounter for immunization

== ENCOUNTER 2024-06-19 09:08 | Outpatient (AMB) | payer OTHER, SELFPAY ==
--- NOTE | 2024-06-19 09:11 | A.OFFVIS_ITS ---
Intake Visit Reasons: Mass X2 1.Rt chest 2.Lt post shoulder Intake Note: Patient here for excision X2 A) Lt chest B) Lt post shoulder. National Sales Manager Required: No Accompanied by: Self / Same As Patient Allergies amlodipine Adverse Reaction (Verified 06/19/24 09:47) leg edema Medication List - Last Reconciled 06/19/24 by Phan Louis MD aspirin (Adult Aspirin Regimen) 81 mg PO DAILY 90 days atorvastatin 80 mg PO BEDTIME 90 days cholecalciferol (vitamin D3) 50 mcg PO DAILY 90 days fluticasone furoate-vilanterol 200-25 mcg/dose (Breo Ellipta) 1 ea PO DAILY hydralazine 100 mg PO TID 90 days losartan 100 mg PO DAILY 90 days Ventolin HFA 90 mcg/actuation (albuterol sulfate) 2 puffs inhalation Q6H PRN 30 days NS HPI Comments Details: Patient presents with 2 sebaceous cysts; 1 involving the upper left back and the other involving the right anterior neck. There both been there for years but are increasing incised, and become more symptomatic. She would like to have them removed. Patient has had sebaceous cyst excisions in the past. Chart was reviewed and patient evaluated [facility] Medical History History of abnormal cervical Pap smear Left knee pain Cough Hypovitaminosis D Pure hypercholesterolemia Essential hypertension Left hip pain Surgical History History of loop electrical excision procedure (LEEP) History of ectopic History of laparoscopic cholecystectomy Family History Father Diabetes Hypertension Mother No problems noted. Sister Gynecologic cancer Maternal Uncle Prostate cancer Maternal Uncle Colon cancer Sister Cancer Brain cancer Sister Ovarian cancer Social History (Updated 05/29/24 @ 08:44 by Megan Grant MD) Housing: House Alcohol intake: never Patient Tobacco Use Status: Current everyday Tobacco user Tobacco use type: Cigarette Cigarettes Per Day: 4 e-Cigarette/Vaping Use: Never Used Second Hand Smoke Exposure: No service: No Current occupational status: unemployed Gender identity: Female Cognitive needs: No Hearing needs: No Vision needs: No Female Reproductive History Menstrual Age of Menarche: 10 Physical Exam Chest Other: Patient was a roughly 3 x 2 cm left upper back sebaceous cyst and a 3 x 2 cm roughly sized sebaceous cyst involving the right lower neck. Office Procedures Excision Details: Patient underwent excision of sebaceous cyst x2. Each area was prepped and draped in usual sterile fashion and approached using transverse by elliptical in cision with uneventful cyst excision respectively and each specimen sent to pathology. Each wound was irrigated, secured hemostasis, and closed using running subcuticular 3-0 Vicryl suture followed by Steri-Strips and sterile dressings. Patient tolerated procedure well. Each cyst measured roughly 3 x 2 cm. 30689-Fvtoytli scalp/neck/hands/feet/genitalia 2.1cm-3cm Procedure code (CPT) selection complete Office Meds lidocaine 1 %-epinephrine 1:100,000 injection solution Performing Provider: Phan Louis MD Performing Location: [facility] [place] [facility] Administered by: Phan Louis MD on 06/19/24 09:44 Dose Route Admin Location Dispensed Lot Number Expiration Date [facility] [place] Septic Pump Truck Driver 20 mL Infiltration 20 mL Quality Reporting (2019) Adult ([facility] 138/07/21/68) Smoking risk assessment performed?: Yes Patient Tobacco Use Status: Current everyday Tobacco user Assessment & Plan Assessment & Plan (1) Sebaceous cyst: Code(s): L72.3 - Sebaceous cyst Category: Surgical Plan: Patient was been given local instructions including ice periodically, Tylenol or Motrin for pain, may shower in 2 days, no strenuous activities. All questions answered. Patient will see me as directed or p.r.n.. Orders: Orders AMB Excision Today L72.3 - Sebaceous cyst Surgical Today L72.3 - Sebaceous cyst Coding Level of Care Code Est Pt Level 5 (31219) Diagnoses Sebaceous cyst L72.3 CPT Codes Scalp/Neck/Hands/Feet/Genetalia - CPT: 31665-Zlhtydbh scalp/neck/hands/feet/genitalia 2.1cm-3cm ([id number])
== END 2024-06-19 09:40 | disposition home or self-care (01) ==
PROVIDERS: PCP Internal Medicine; Referring Provider Internal Medicine; Visit Provider Surgery
DX: L72.3 Sebaceous cyst (principal)
CPT/HCPCS: 11403; 99213

== ENCOUNTER 2024-06-19 09:08 | Outpatient (REF) | payer OTHER, SELFPAY | END 2024-06-19 09:09 | disposition home or self-care (01) | LOC: HO.LNP 09:08 | PROVIDERS: PCP Internal Medicine; Referring Provider Internal Medicine; Visit Provider Surgery | DX: L72.3 Sebaceous cyst (principal) | CPT/HCPCS: 11403; 88304; 99212 ==

== ENCOUNTER 2024-06-26 13:28 | Outpatient (AMB) | payer OTHER, SELFPAY ==
[2024-06-26 13:35] VITALS: BP 148/77; PULSE 99; O2SAT 97; BMI 33.0
--- NOTE | 2024-06-26 13:35 | MHC.OFFVIS ---
Vital Signs 06/26/24 13:35 Height 5 ft Weight 169 lb BMI 33.0 BP 148/77 H Blood Pressure Location Rt brachial Position Sitting Pulse 99 Pulse Source Doppler Pulse Oximetry (%) 97 Oxygen Delivery Method Room Air Intake Visit Reasons: Emphysema lung Allergies amlodipine Adverse Reaction (Verified 06/26/24 13:38) leg edema HPI HPI Emphysema lung: Details: 58-year-old lady, active 30+ pack-year smoker lost to follow-up for over 2 years, previously followed for underlying moderate COPD and pulmonary nodules up to 5 mm.? She was not able to tolerate Trelegy. She continues on Breo, duo nebs, and albuterol MDI with suboptimal control of her symptoms.? She denies any recent exacerbations.? She complains of recurrent cough productive of whitish sputum. [facility] Medical History (Updated 06/26/24 @ 14:10 by Izt Singer MD) History of abnormal cervical Pap smear Left knee pain Cough Hypovitaminosis D Pure hypercholesterolemia Essential hypertension Left hip pain Surgical History (Updated 06/22/24 @ 13:58 by RICHARD Hill) Hx of surgical procedure (06/19/24) History of loop electrical excision procedure (LEEP) History of ectopic History of laparoscopic cholecystectomy Family History Father Diabetes Hypertension Mother No problems noted. Sister Gynecologic cancer Maternal Uncle Prostate cancer Maternal Uncle Colon cancer Sister Cancer Brain cancer Sister Ovarian cancer Social History (Updated 06/26/24 @ 13:39 by RICHARD Magdaleno) Housing: House Alcohol intake: never Patient Tobacco Use Status: Current everyday Tobacco user Tobacco use type: Cigarette Cigarettes Per Day: 3 e-Cigarette/Vaping Use: Never Used Second Hand Smoke Exposure: No service: No Current occupational status: unemployed Gender identity: Female Cognitive needs: No Hearing needs: No Vision needs: No Female Reproductive History Menstrual Age of Menarche: 10 Review of Systems Const Denies daytime sleepiness, Denies excessive sweating, Denies fatigue, Denies fever(s), Denies lethargy, Denies malaise, Denies night sweats, Denies snoring and Denies weight loss Eyes Denies blurry vision and Denies itchy eyes ENT Denies nasal congestion, Denies post nasal drip, Denies sinus pain, Denies sinus pressure and Denies other ( Thrush) Card Denies chest pain, Denies pedal edema, Denies dyspnea, Reports dyspnea on exertion, Denies orthopnea and Denies paroxysmal nocturnal dyspnea Resp Reports cough, Denies hemoptysis, Reports excessive phlegm production, Denies dyspnea, Reports dyspnea on exertion, Denies snoring and Denies wheezing GI Denies abdominal pain and Denies heartburn Musc Denies myalgias, Denies arthralgias and Denies joint swelling Skin/Breast Denies rash Neuro Denies memory loss and Denies seizure-like activity Psych Denies abnormal sleep pattern, Denies anxiety and Denies memory loss Endo Denies excessive sweating, Denies fatigue and Denies heat intolerance Antelmo/Lymph Denies easy bruising Aller/Immun Denies itchy eyes, Denies seasonal rhinorrhea and Denies wheezing Physical Exam Vital Signs: Last Vital Signs Pulse 99 06/26/24 13:35 BP 148/77 H 06/26/24 13:35 Pulse Ox 97 06/26/24 13:35 Oxygen Delivery Method Room Air 06/26/24 13:35 BMI result Body Mass Index 33.0 Const General: no acute distress and alert Nutritional Appearance: not obese Orientation/consciousness: Other orientation findings ( oriented) HEENT Head: Yes atraumatic Eyes General: appearance normal, both eyes and all related structures Sclerae: sclerae normal EOM: EOMs intact bilaterally Neck Neck: Yes supple Lymphatic: no lymphadenopathy noted Resp Effort & Inspection: normal respiratory effort and no use of accessory muscles Auscultation: clear to auscultation bilaterally Cardio Rate: regular rate Rhythm: regular rhythm Heart sounds: no gallops, no murmurs and no rubs Skin General skin exam: other ( warm) Extrem General: No clubbing, No cyanosis and No edema Quality Reporting (2019) Adult ([facility] 138/07/21/68) Smoking risk assessment performed?: Yes Patient Tobacco Use Status: Current everyday Tobacco user Assessment & Plan Assessment & Plan (1) Emphysema lung: Code(s): J43.9 - Emphysema, unspecified Category: Medical Qualifiers: Emphysema type: unspecified Qualified Code(s): J43.9 - Emphysema, unspecified Plan: Suboptimal control on Breo, will add Spiriva. Continue albuterol MDI. Will obtain full PFT. Will treat bronchitic with a course of azithromycin. (2) Personal history of nicotine dependence: Code(s): Z87.891 - Personal history of nicotine dependence Category: Medical Plan: Will obtain lung cancer screening CT chest. Orders: Orders PFT pulmonary function test Today J43.9 - Emphysema, unspecified CT lung screening Today Z87.891 - Personal history of nicotine dependence Medications: New tiotropium bromide 2.5 mcg/actuation (Spiriva Respimat) 2 puffs inhalation QAM 4 grams 6RF azithromycin For 250 mg dose pack: take 500 mg today (day 1), then 250 mg for 4 days (days 2-5) PO 6 tabs 0RF Coding Level of Care Code Est Pt Level 4 (64127) Diagnoses Pulmonary emphysema, unspecified emphysema type J43.9 Emphysema type: unspecified Personal history of nicotine dependence Z87.891
== END 2024-06-26 14:02 | disposition home or self-care (01) ==
PROVIDERS: PCP Internal Medicine; Visit Provider Internal Medicine Pulmonary Disease
DX: J43.9 Emphysema, unspecified (principal); Z87.891 Personal history of nicotine dependence
CPT/HCPCS: 99214

== ENCOUNTER → 2024-06-26 13:28 | Outpatient (BNVA) | payer OTHER, SELFPAY | PROVIDERS: PCP Internal Medicine; Visit Provider Internal Medicine Pulmonary Disease | DX: J43.9 Emphysema, unspecified (principal); R91.8 Other nonspecific abnormal finding of lung field; Z87.891 Personal history of nicotine dependence | CPT/HCPCS: 99212 ==

== ENCOUNTER 2024-06-27 08:33 | Outpatient (AMB) | payer OTHER, SELFPAY ==
--- NOTE | 2024-06-27 08:40 | MHC.OFFVIS ---
Intake Visit Reasons: s/p 1.Rt chest 2.Lt post shoulder Intake Note: Patient here s/p cyst exc X2. A) Rt chest B). Lt posterior shoulder. Reports incision healing well. Patient c/o: neck site was more tender. Baffle Installer Required: No Accompanied by: Self / Same As Patient Allergies amlodipine Adverse Reaction (Verified 06/27/24 08:45) leg edema HPI Comments Details: Patient presents for follow-up status post neck and back cyst excisions. She has no wound issues or complaints. Pathology is benign. [facility] Medical History (Updated 06/26/24 @ 14:10 by Itz Singer MD) History of abnormal cervical Pap smear Left knee pain Cough Hypovitaminosis D Pure hypercholesterolemia Essential hypertension Left hip pain Surgical History (Updated 06/27/24 @ 09:00 by Phan Louis MD) Hx of surgical procedure (06/19/24) History of loop electrical excision procedure (LEEP) History of ectopic History of laparoscopic cholecystectomy Family History Father Diabetes Hypertension Mother No problems noted. Sister Gynecologic cancer Maternal Uncle Prostate cancer Maternal Uncle Colon cancer Sister Cancer Brain cancer Sister Ovarian cancer Social History (Updated 06/26/24 @ 13:39 by Bethany Kang North) Housing: House Alcohol intake: never Patient Tobacco Use Status: Current everyday Tobacco user Tobacco use type: Cigarette Cigarettes Per Day: 3 e-Cigarette/Vaping Use: Never Used Second Hand Smoke Exposure: No service: No Current occupational status: unemployed Gender identity: Female Cognitive needs: No Hearing needs: No Vision needs: No Female Reproductive History Menstrual Age of Menarche: 10 Physical Exam Chest Other: Right anterior neck and left upper back incisions clean dry and intact healing very well Quality Reporting (2019) Adult ([facility] 138/07/21/68) Smoking risk assessment performed?: Yes Patient Tobacco Use Status: Current everyday Tobacco user Assessment & Plan Assessment & Plan (1) Encounter for postoperative wound check: Code(s): Z48.89 - Encounter for other specified surgical aftercare Category: Surgical Plan Patient was been given local instructions, and will follow up p.r.n.. All questions answered. Coding Level of Care Code Global (33020) Diagnoses Encounter for postoperative wound check Z48.89
== END 2024-06-27 08:44 | disposition home or self-care (01) ==
PROVIDERS: PCP Internal Medicine; Visit Provider Surgery
DX: Z48.89 Encounter for other specified surgical aftercare (principal)
CPT/HCPCS: 99024

== ENCOUNTER → 2024-06-27 08:33 | Outpatient (BNVA) | payer OTHER, SELFPAY | PROVIDERS: PCP Internal Medicine; Visit Provider Surgery | DX: Z48.89 Encounter for other specified surgical aftercare (principal) | CPT/HCPCS: 99212 ==

== ENCOUNTER → 2024-07-04 07:52 | Outpatient (REF) | payer OTHER, SELFPAY ==
--- NOTE | ~2024-07-04 | MM_ITS ---
EXAMINATION: DXA BONE DENSITY AXIAL HISTORY: Estrogen deficiency TECHNIQUE: [employer] Dual energy absorptiometry (DEXA) of the lumbar spine, total left hip, and femoral neck was performed. COMPARISON: Comparison is made with the prior examination dated 12/20/2018. FINDINGS: The bone mineral density of the lumbar spine is 0.992 with a T-score of -1.6, and a Z-score of -0.7. This represents a BMD change of -13.2% compared to the prior exam. This is statistically significant. The bone mineral density of the left total hip is 0.950 with a T-score of -0.5, and a Z-score of 0.2. This represents BMD change of 3.6% compared to the prior exam. This is not statistically significant. The bone mineral density of the left femoral neck is 0.867 with a T-score of -1.2, and a Z-score of -0.2. This represents BMD change of 10.7% compared to the prior exam. FRACTURE RISK: The FRAX index suggests a ten year probability of major osteoporotic fracture of 7.3%, and of hip fracture 0.9%. MM/XR DEXA axial skeleton IMPRESSION: Based on bone mineral density, and according to World Health Organization (WHO) criteria, the diagnosis is consistent with osteopenia. All bone density values are in grams per centimeter squared (g/cm2). Statistically, 68% of repeat scans fall within 1 SD (+/- 0.010 g/cm2 for AP spine L1-L4) and 1 SD (+/- 0.012 g/cm2 for femur total) FRAX is a trademark of the [employer] Met[employer] Disease, a World Health Organization (WHO) Collaborating Center. Electronically signed by: Doug Villagomez MD 07/05/2024 07:47 AM [facility] [place]
== END | disposition home or self-care (01) ==
LOC: HO.MAMMO 07:52
PROVIDERS: PCP Internal Medicine; Visit Provider Internal Medicine
DX: Z13.820 Encounter for screening for osteoporosis (principal); Z78.0 Asymptomatic menopausal state
CPT/HCPCS: 77080

== ENCOUNTER → 2024-07-04 08:15 | Outpatient (BNV) | payer OTHER, SELFPAY | PROVIDERS: PCP Internal Medicine; Visit Provider Radiology Diagnostic Radiology | DX: E28.39 Other primary ovarian failure (principal) | CPT/HCPCS: 77080 ==

== ENCOUNTER 2024-08-02 08:50 | Outpatient (REF) | payer OTHER, SELFPAY ==
--- NOTE | 2024-08-02 09:13 | PFT_ITS ---
Indication: Emphysema Spirometry [FEV1 to FVC 58%; FEV1 1.51 L; FVC 2.59 L. no significant response to bronchodilators noted.] Lung Volumes [Total lung capacity 101% predicted; residual volume 136% predicted] Diffusion Capacity [DLCO 77% predicted] Comparisons [none] Interpretation [There is an obstructive ventilatory defect consistent with moderate COPD. No significant response to bronchodilators noted. Lung volumes with significant air trapping due to COPD. The patient does have a mild diffusion impairment. Clinical correlation warranted.] MTDD
[2024-08-02 09:46] VITALS: PULSE 73
== END 2024-08-02 08:51 | disposition home or self-care (01) ==
LOC: HO.RESP 08:50
PROVIDERS: PCP Internal Medicine; Visit Provider Internal Medicine Pulmonary Disease
DX: J43.9 Emphysema, unspecified (principal); Z87.891 Personal history of nicotine dependence
CPT/HCPCS: 94010; 94640; 94727; 94729; 99212

== ENCOUNTER 2024-08-02 11:10 | Outpatient (AMB) | payer OTHER, SELFPAY ==
[2024-08-02 11:00] VITALS: BP 150/82; PULSE 90; O2SAT 96; BMI 33.6
--- NOTE | 2024-08-02 11:00 | A.OFFVIS_ITS ---
Vital Signs 08/02/24 11:00 Height 5 ft Weight 171 lb 15.369 oz BMI 33.6 BP 150/82 H Blood Pressure Location Rt brachial Position Sitting Pulse 90 Pulse Source Doppler Pulse Oximetry (%) 96 Oxygen Delivery Method Room Air Intake Visit Reasons: Emphysema/PFT Follow Up Allergies amlodipine Adverse Reaction (Verified 08/02/24 11:05) leg edema HPI HPI Emphysema/PFT Follow Up: Details: 59-year-old lady, active 30+ pack-year followed for moderate COPD and pulmonary nodules up to 5 mm.? She was not able to tolerate Trelegy. She continues on Breo, duo nebs, and albuterol MDI and Spiriva was added at the last office visit, however she was not able to obtain Spiriva and her symptoms remain subop timally controlled, though she denies acute exacerbations. She did complete her follow-up pulmonary function test that shows underlying moderate obstructive ventilatory defect. [facility] Medical History (Updated 08/02/24 @ 11:18 by Itz Singer MD) History of abnormal cervical Pap smear Left knee pain Cough Hypovitaminosis D Pure hypercholesterolemia Essential hypertension Left hip pain Surgical History (Updated 06/27/24 @ 09:00 by Phan Louis MD) Hx of surgical procedure (06/19/24) History of loop electrical excision procedure (LEEP) History of ectopic History of laparoscopic cholecystectomy Family History Father Diabetes Hypertension Mother No problems noted. Sister Gynecologic cancer Maternal Uncle Prostate cancer Maternal Uncle Colon cancer Sister Cancer Brain cancer Sister Ovarian cancer Social History (Updated 08/02/24 @ 11:07 by Bethany Kang [place]) Housing: House Alcohol intake: never Patient Tobacco Use Status: Current everyday Tobacco user Tobacco use type: Cigarette Cigarettes Per Day: 5 e-Cigarette/Vaping Use: Never Used Second Hand Smoke Exposure: No service: No Current occupational status: unemployed Gender identity: Female Cognitive needs: No Hearing needs: No Vision needs: No Female Reproductive History Menstrual Age of Menarche: 10 Review of Systems Const Denies daytime sleepiness, Denies excessive sweating, Denies fatigue, Denies fever(s), Denies lethargy, Denies malaise, Denies night sweats, Denies snoring and Denies weight loss Eyes Denies blurry vision and Denies itchy eyes ENT Denies nasal congestion, Denies post nasal drip, Denies sinus pain, Denies sinus pressure and Denies other ( Thrush) Card Denies chest pain, Denies pedal edema, Denies dyspnea, Denies orthopnea and Denies paroxysmal nocturnal dyspnea Resp Denies cough, Denies hemoptysis, Denies excessive phlegm production, Denies dyspnea, Denies snoring and Denies wheezing GI Denies abdominal pain and Denies heartburn Musc Denies myalgias, Denies arthralgias and Denies joint swelling Skin/Breast Denies rash Neuro Denies memory loss and Denies seizure-like activity Psych Denies abnormal sleep pattern, Denies anxiety and Denies memory loss Endo Denies excessive sweating, Denies fatigue and Denies heat intolerance Antelmo/Lymph Denies easy bruising Aller/Immun Denies itchy eyes, Denies seasonal rhinorrhea and Denies wheezing Physical Exam Vital Signs: Last Vital Signs Pulse 90 08/02/24 11:00 BP 150/82 H 08/02/24 11:00 Pulse Ox 96 08/02/24 11:00 Oxygen Delivery Method Room Air 08/02/24 11:00 BMI result Body Mass Index 33.6 Const General: no acute distress and alert Nutritional Appearance: not obese Orientation/consciousness: Other orientation findings ( oriented) HEENT Head: Yes atraumatic Eyes General: appearance normal, both eyes and all related structures Sclerae: sclerae normal EOM: EOMs intact bilaterally Neck Neck: Yes supple Lymphatic: no lymphadenopathy noted Resp Effort & Inspection: normal respiratory effort and no use of accessory muscles Auscultation: clear to auscultation bilaterally Cardio Rate: regular rate Rhythm: regular rhythm Heart sounds: no gallops, no murmurs and no rubs Skin General skin exam: other ( warm) Extrem General: No clubbing, No cyanosis and No edema Quality Reporting (2019) Adult ([facility] 138/2/) Smoking risk assessment performed?: Yes Patient Tobacco Use Status: Current everyday Tobacco user Assessment & Plan Assessment & Plan (1) COPD (chronic obstructive pulmonary disease): Code(s): J44.9 - Chronic obstructive pulmonary disease, unspecified Category: Medical Plan: Suboptimal control on Breo and albuterol MDI. Insurance does not cover Spiriva, will add Incruse. (2) Personal history of nicotine dependence: Code(s): Z87.891 - Personal history of nicotine dependence Category: Medical Plan: Lung cancer screening CT chest is pending for later this month. Medications: New umeclidinium 62.5 mcg/actuation (Incruse Ellipta) 1 inh inhalation DAILY 1 ea 6RF Discontinued tiotropium bromide 2.5 mcg/actuation (Spiriva Respimat) Discontinued Reason: Doctor's Order 2 puffs inhalation QAM 4 grams 6RF Coding Level of Care Code Est Pt Level 4 (23603) Diagnoses COPD (chronic obstructive pulmonary disease) J44.9 Personal history of nicotine dependence Z87.891
== END 2024-08-02 11:16 | disposition home or self-care (01) ==
PROVIDERS: PCP Internal Medicine; Visit Provider Internal Medicine Pulmonary Disease
DX: J44.9 Chronic obstructive pulmonary disease, unspecified (principal); Z87.891 Personal history of nicotine dependence
CPT/HCPCS: 99214

== ENCOUNTER 2024-08-13 07:54 | Outpatient (REF) | payer OTHER, SELFPAY ==
--- NOTE | ~2024-08-13 | CT_ITS ---
CLINICAL HISTORY: Z87.891 - Personal history of nicotine dependence Examination CT lung cancer screening History Screening examination performed for pulmonary nodules Technique Axial CT images of the chest using low-dose technique. Effective radiation dose total: 51.8 mGy-cm, CTDIvol 1.56 mGy. Referring provider counseled the patient on shared decision-making for LDCT screening. Additional counseling was provided on smoking cessation. Comparison: CT/REG/KS/SR - CT CHEST WO IV CON - 11/10/22 07:[address]/REG/SR - CT CHEST WO CON - 09/07/21 13:[address]/KS - CT CHEST WO CON - 01/13/21 08:48 EDT Findings: Lungs: Stable solid pulmonary nodules measuring up to 5 mm (right lower lobe series 4, image 84). New solid 5 mm pulmonary nodule in the superior segment of the left lower (series 4, image 46). Mild biapical scarring. Mild paraseptal emphysema and bronchial wall thickening. Moderate centrilobular emphysema. Subsegmental atelectasis versus linear scarring in the lingula Coronary artery calcifications: None Other: None Limited upper abdomen: Status post cholecystectomy Impression: LungRADS 3 - Probably benign: Recommend low dose screening Chest CT in 6 months. ##L3# Category 1: Normal; continue annual screening Category 2: Benign appearance or behavior, continue annual screening Category 3: Probably benign, [address] recommended Category 4A: Suspicious, [address] recommended; may consider PET/CT Category 4B: Suspicious, Additional diagnostics and/or tissue sampling recommended Category 4X: Suspicious, Additional diagnostics and/or tissue sampling recommended Category 0: Recalls (incomplete screen due to Incomplete coverage, Noise, Respiratory motion, Expiration, Obscured by acute abnormality) This document has been electronically signed by: Lindsay Arteaga MD on 08/13/2024 22:15:58
== END 2024-08-13 07:55 | disposition home or self-care (01) ==
LOC: HO.CT 07:54
PROVIDERS: PCP Internal Medicine; Visit Provider Internal Medicine Pulmonary Disease
DX: Z12.2 Encounter for screening for malignant neoplasm of respiratory organs (principal); Z87.891 Personal history of nicotine dependence
CPT/HCPCS: 71271

== ENCOUNTER → 2024-08-13 07:56 | Outpatient (BNV) | payer OTHER, SELFPAY | PROVIDERS: PCP Internal Medicine; Visit Provider Radiology Diagnostic Radiology | DX: Z87.891 Personal history of nicotine dependence (principal) | CPT/HCPCS: 71271 ==

== ENCOUNTER 2024-09-27 06:50 | Outpatient (REF) | payer OTHER, SELFPAY ==
[2024-09-27 08:13] LABS: Alanine Aminotransferase 9 U/L (0-31); Alkaline Phosphatase 61 U/L (39-117); Anion Gap 12 (12-20); Aspartate Amino Transferase 15 U/L (5-31); Bilirubin Total 0.5 mg/dL (0.0-1.0); Blood Urea Nitrogen 12 mg/dL (9-16); Carbon Dioxide 25 mmol/L (22-29); Chloride 106 mmol/L (96-108); Cholesterol 152 mg/dL (<200); Estimated Glomerular Filt Rate > 60; Glucose Fasting 106 mg/dL (60-99); HDL Cholesterol 51 mg/dL (>40); LDL Cholesterol Calculated 81 mg/dL (<100); Potassium 3.7 mmol/L (3.3-5.1); Sodium 139 mmol/L (135-145); Total Protein 6.4 g/dL (6.5-8.0); Triglycerides 100 mg/dL (<150)
[2024-09-27 08:33] LABS: Vitamin D 25-OH Total 14.7 ng/mL (>30)
== END 2024-09-27 06:51 | disposition home or self-care (01) ==
LOC: HO.LAB 06:50
PROVIDERS: PCP Internal Medicine; Visit Provider Internal Medicine
DX: I10 Essential (primary) hypertension (principal); J44.9 Chronic obstructive pulmonary disease, unspecified; L60.2 Onychogryphosis; R01.1 Cardiac murmur, unspecified; F32.0 Major depressive disorder, single episode, mild; E78.00 Pure hypercholesterolemia, unspecified; Z00.00 Encounter for general adult medical examination without abnormal findings; E55.9 Vitamin D deficiency, unspecified
CPT/HCPCS: 36415; 80053; 80061; 82306; 96127; 99212

== ENCOUNTER 2024-09-27 07:46 | Outpatient (AMB) | payer OTHER, SELFPAY ==
--- NOTE | 2024-09-27 07:48 | MHC.PC.OV ---
Vital Signs 09/27/24 07:49 Height 5 ft Weight 167 lb BMI 32.6 BP 150/78 H Blood Pressure Location Lt brachial Position Sitting Intake Visit Reasons: bp Intake Note: Patient here for a follow up BP Youth Advocate Required: No Accompanied by: Self / Same As Patient Allergies amlodipine Adverse Reaction (Verified 09/27/24 08:08) leg edema Medication List - Last Reconciled 09/27/24 by Megan Grant MD aspirin (Adult Aspirin Regimen) 81 mg PO DAILY 90 days atorvastatin 80 mg PO BEDTIME 90 days cholecalciferol (vitamin D3) 50 mcg PO DAILY 90 days fluticasone furoate-vilanterol 200-25 mcg/dose (Breo Ellipta) 1 ea PO DAILY hydralazine 100 mg PO TID 90 days losartan 100 mg PO DAILY 90 days umeclidinium 62.5 mcg/actuation (Incruse Ellipta) 1 inh inhalation DAILY Ventolin HFA 90 mcg/actuation (albuterol sulfate) 2 puffs inhalation Q6H PRN 30 days NS Tobacco use date assessed: 09/27/24 Dental Screening Dental Screen Date: 09/27/24 Did you have a dental visit in the last 12 months?: No Did you have a dental problem in the last 6 months where you did not have access to dental care?: No Was dental information given to patient?: Patient declined HPI HPI Comments History of Present Illness Details The patient is a 59-year-old female presenting for a follow-up evaluation of her chronic conditions, including essential hypertension managed with a combination of medications despite experiencing side effects, such as leg swelling from amlodipine. The patient is also managing COPD, with reports of increased use of a rescue inhaler and shortness of breath upon minor exertion. Recent tests have shown preserved renal and liver function, though the glucose level suggests a prediabetes state, consistent with previous pattern. The patient's smoking habit persists as a stress response, averaging five cigarettes a day. Osteopenia management requires a review, with calcium supplements not currently part of her regimen. A follow-up assessment of her mild depression, as indicated by a PHQ-9 score, remains unevaluated beyond acknowledging her life?s stressors like caring for an ailing spouse. Additional concerns include onychogriposis of the toenails, which will be evaluated by podiatry, and a heart murmur warranting an echocardiographic examination given its undated assessment. COUNTS INCLUDE 234 BEDS AT THE [facility] Medical History (Updated 09/27/24 @ 08:21 by Megan Grant MD) History of abnormal cervical Pap smear Left knee pain Cough Hypovitaminosis D Pure hypercholesterolemia Essential hypertension Left hip pain Surgical History Hx of surgical procedure (06/19/24) History of loop electrical excision procedure (LEEP) History of ectopic History of laparoscopic cholecystectomy Family History Father Diabetes Hypertension Mother No problems noted. Sister Gynecologic cancer Maternal Uncle Prostate cancer Maternal Uncle Colon cancer Sister Cancer Brain cancer Sister Ovarian cancer Social History Housing: House Alcohol intake: never Patient Tobacco Use Status: Current everyday Tobacco user Tobacco use type: Cigarette Cigarettes Per Day: 5 e-Cigarette/Vaping Use: Never Used Second Hand Smoke Exposure: No service: No Current occupational status: unemployed Gender identity: Female Cognitive needs: No Hearing needs: No Vision needs: No Female Reproductive History Menstrual Age of Menarche: 10 Questionnaire PHQ-9 Over the last 2 weeks, how often have you been bothered by any of the following problems? 1. Little interest or pleasure in doing things: several days 2. Feeling down, depressed, or hopeless: several days 3. Trouble falling or staying asleep, or sleeping too much: more than half the days 4. Feeling tired or having little energy: more than half the days 5. Poor appetite or overeating: several days 6. Feeling bad about yourself - or that you are a failure or have let yourself or your family down: not at all 7. Trouble concentrating on things, such as reading the newspaper or watching television: not at all 8. Moving or speaking so slowly that other people could have noticed. Or the opposite - being so fidgety or restless that you have been moving around a lot more than usual: several days 9. Thoughts that you would be better off or of hurting yourself in some way: not at all Total score: 8 Depression Screening Interpretation: Positive Depression Screening Follow-up: Existing condition, Follow-up Visit Requested and Declines treatment Depression Screening Done: Yes 88420 - PHQ-9 Billing: Yes Source: Developed by Drs. Doug Valiente, Cristóbal Johansen and colleagues, with an educational vida from [employer]. Thrive Questionnaire Date Thrive assessed: 09/27/24 I am a: Patient What is your living situation today?: I have a steady place to live Within the past 12 months, did the food you bought not last and you didn't have the money to get more?: Never true Within the past 12 months, did you worry whether your food would run out before you got money to buy more?: Never true Do you have trouble paying for medicines?: Yes Do you have trouble getting transportation to medical appointments?: No Do you have trouble paying your heating and electricity bill?: No Do you have trouble taking care of your child, family member or friend?: No Do you have trouble with day-to-day activities such as bathing, preparing meals, shopping, managing finances, etc.?: Yes Are you currently unemployed and looking for a job?: No Are you interested in more education?: No Please select the resources that you would like help with: None Currently or been in a relationship where the following occur: No concerns reported THRIVE Score: 0 AUDIT C Alcohol Use Questionnaire (AUDIT-C) 1. How often do you have a drink containing alcohol?: Never Total Score: 0 Score Reviewed/Action Taken: No NIKO-7 AMB Questionnaire NIKO-7 Date NIKO - 7 assessed: 09/27/24 Feeling nervous, anxious, or on edge: 1 = Several days Not being able to stop or control worryin = Nearly every day Worrying too much about different things: 3 = Nearly every day Trouble relaxin = More than half the days Being so restless that it is hard to sit still: 3 = Nearly every day Becoming easily annoyed or irritable: 3 = Nearly every day Feeling afraid as if something awful might happen: 0 = Not at all Total NIKO-7 score (0-4 normal; 5-9 mild; 10-14 moderate; 15-21 severe): 15 Source: Developed by Sharon Arita Kurt Kroenke and colleagues, with an educational vida from [employer]. NIKO-7 Assessment Billing NIKO-7 Assessment Tool: NIKO-7 Assessment 07903 Review of Systems Const All systems reviewed & are unremarkable except as noted in HPI and below Card Denies chest pain at rest, Denies chest pain with activity, Denies edema, Denies irregular heart rhythm, Denies claudication, Denies dyspnea, Denies dyspnea on exertion, Denies orthopnea, Denies paroxysmal nocturnal dyspnea and Denies slow heart rate Resp Denies cough, Denies dyspnea and Denies dyspnea on exertion GI Denies abdominal pain, Denies change in bowel habits, Denies excessive flatus, Denies nausea and Denies vomiting Physical exam (Primary Care) Vital Signs: Last Vital Signs BP 150/78 H 09/27/24 07:49 BMI result Body Mass Index 32.6 BMI Assessment/Plan discussion: High BMI High, discussed plan: lifestyle, weight reduction, dietary and physical activity Tobacco/Smoking Status: Tobacco use Status Tobacco use date assessed 09/27/24 09/27/24 07:55 Patient Tobacco Use Status Current everyday Tobacco 09/27/24 07:51 Tobacco use type Cigarette 09/27/24 07:51 e-Cigarette/Vaping Use Never Used 09/27/24 07:51 Are you ready to quit: No Tobacco cessation counseling provided: Yes Items discussed: Nicotine replacement and QuitWorks Relapse Prevention: discussed the importance of a supportive environment and discussed negative mood or depression after quitting Number of minutes spent counselin CPT code: 48402 - 4-10 Minutes PHQ-9: PHQ-9 Score PHQ-9: Total score 8 09/27/24 09:25 Depression Screening Interpretation: Positive Depression Screening Follow-up: Existing condition, Follow-up Visit Requested and Declines treatment Thrive Assessment: Date of Thrive Assessment Date Thrive assessed 09/27/24 09/27/24 07:51 Currently or been in a relationship where the following occur: No concerns reported Resp Effort & Inspection: normal respiratory effort Auscultation: clear to auscultation bilaterally Cardio Jugular venous distension: no JVD Rate: regular rate Rhythm: regular rhythm Heart sounds: S1 normal heart sound present, S2 normal heart sound present and Murmur heart sound present systolic Extrem General: Yes full ROM Coding Level of Care Code Est Pt Level 4 (62868) Complex EM visit Add On G2211 Diagnoses COPD (chronic obstructive pulmonary disease) J44.9 Onychogryposis L60.2 Systolic murmur R01.1 Mild major depression F32.0 Essential hypertension I10 Pure hypercholesterolemia E78.00 Additional Codes NIKO-7 Assessment Billing - NIKO-7 Assessment Tool: NIKO-7 Assessment 27828 ([id number]) PHQ-9 - 14652 - PHQ-9 Billing: Yes ([id number]) Vital Signs *Quality* - CPT code: 98742 - 4-10 Minutes ([id number]) Time Spent (min) 25 Assessment & Plan Assessment & Plan (1) COPD (chronic obstructive pulmonary disease): Code(s): J44.9 - Chronic obstructive pulmonary disease, unspecified Category: Medical (2) Onychogryposis: Code(s): L60.2 - Onychogryphosis Category: Medical (3) Systolic murmur: Code(s): R01.1 - Cardiac murmur, unspecified Category: Medical (4) Mild major depression: Code(s): F32.0 - Major depressive disorder, single episode, mild Category: Medical (5) Essential hypertension: Code(s): I10 - Essential (primary) hypertension Category: Medical (6) Pure hypercholesterolemia: Code(s): E78.00 - Pure hypercholesterolemia, unspecified Category: Medical Plan I will maintain current hypertension medications and refer to nephrology for blood pressure management advice. The patient's COPD regimen with Breo will continue with the advice to limit inhaler use when possible. Smoking cessation is recommended when stressors reduce. Calcium supplements are to be initiated for osteopenia. Echocardiogram arranged for heart murmur assessment and podiatry consult for nail evaluation. Repeat lung imaging will occur as scheduled. Patient was informed and verbally consented to the use of an ambient scribe for clinic note documentation during this visit. I discussed the importance of managing the patient's current chronic conditions and the potential requirement for specialized input for hypertension management. I emphasized the benefits of maintaining blood pressure and cholesterol control and the specific external benefits of following through on calcium supplementation and vitamin D levels for osteopenia. For smoking, I advised quitting when practical, considering stress factors. I explained the rationale and future planning around the heart ultrasound for appropriate cardiovascular follow-up and the podiatry referral to manage the present condition. Orders: Orders CA echo transthoracic complete Today R01.1 - Cardiac murmur, unspecified Referrals Podiatry Referral L60.2 - Onychogryphosis Nephrology Referral I10 - Essential (primary) hypertension Medications: New calcium carbonate 600 mg PO BID 180 tabs 0RF 90 days Refilled cholecalciferol (vitamin D3) 50 mcg PO DAILY 90 caps 3RF 90 days Patient Instructions: - Continue current medications as prescribed. - Add calcium supplements as directed for bone health. - Prepare for director information security and echocardiogram appointments. - Follow up with aviation tactical readiness officer for nail care. - Implement lifestyle stress reductions and consider smoking cessation when possible. - Await further instructions regarding additional tests and follow-up imaging.
[2024-09-27 07:49] VITALS: BP 150/78; BMI 32.6
== END 2024-09-27 08:21 | disposition home or self-care (01) ==
LOC: HO.HMCH 07:47
PROVIDERS: PCP Internal Medicine; Visit Provider Internal Medicine
DX: J44.9 Chronic obstructive pulmonary disease, unspecified (principal); L60.2 Onychogryphosis; R01.1 Cardiac murmur, unspecified; F32.0 Major depressive disorder, single episode, mild; I10 Essential (primary) hypertension; E78.00 Pure hypercholesterolemia, unspecified

== ENCOUNTER 2024-10-18 10:13 | Outpatient (AMB) | payer OTHER, SELFPAY ==
[2024-10-18 10:17] VITALS: BP 132/64; BMI 31.8
--- NOTE | 2024-10-18 10:17 | HO.NEPHOV ---
Vital Signs 10/18/24 10:17 Height 5 ft Weight 163 lb BMI 31.8 BP 132/64 Blood Pressure Location Lt brachial Position Sitting Intake Visit Reasons: INP: Essential (primary) hypertension/ Conf Cigar Tobacco Rehandler Required: No Accompanied by: Self / Same As Patient Allergies amlodipine Adverse Reaction (Verified 10/18/24 10:19) leg edema Medication List - Last Reconciled 10/18/24 by Param Fry MD aspirin (Adult Aspirin Regimen) 81 mg PO DAILY 90 days atorvastatin 80 mg PO BEDTIME 90 days calcium carbonate 600 mg PO BID 90 days cholecalciferol (vitamin D3) 50 mcg PO DAILY 90 days fluticasone furoate-vilanterol 200-25 mcg/dose (Breo Ellipta) 1 ea PO DAILY umeclidinium 62.5 mcg/actuation (Incruse Ellipta) 1 inh inhalation DAILY Ventolin HFA 90 mcg/actuation (albuterol sulfate) 2 puffs inhalation Q6H PRN 30 days NS HPI Comments Details: 59-year-old lady Krista Lugo with past medical history significant for hypertension, COPD, arthritis, vitamin-D deficiency is referred for the management of hypotension. She is on losartan 100 mg daily, hydralazine 100 mg TID for the management of blood pressures. takes losartan at 8AM and takes hydralazine TID on tylenol for arthritis doesnt take NSAID has a difficulties in the night, takes naps during the day, has snoring during the night [facility], [facility] Medical History History of abnormal cervical Pap smear Left knee pain Cough Hypovitaminosis D Pure hypercholesterolemia Essential hypertension Left hip pain Surgical History Hx of surgical procedure (06/19/24) History of loop electrical excision procedure (LEEP) History of ectopic History of laparoscopic cholecystectomy Family History Father Diabetes Hypertension Mother No problems noted. Sister Gynecologic cancer Maternal Uncle Prostate cancer Maternal Uncle Colon cancer Sister Cancer Brain cancer Sister Ovarian cancer Social History Housing: House Alcohol intake: never Patient Tobacco Use Status: Current everyday Tobacco user Tobacco use type: Cigarette Cigarettes Per Day: 5 e-Cigarette/Vaping Use: Never Used Second Hand Smoke Exposure: No service: No Current occupational status: unemployed Gender identity: Female Cognitive needs: No Hearing needs: No Vision needs: No Female Reproductive History Menstrual Age of Menarche: 10 Review of Systems Const Denies body aches, Denies chills, Denies excessive sweating and Denies fatigue Eyes Denies blurry vision and Denies change in vision ENT Denies bleeding gums and Denies change in voice Card Denies chest pain and Denies leg ulcers Resp Denies cough and Denies excessive phlegm production GI Denies abdominal pain and Denies bloating Denies hematuria, Denies urinary frequency and Denies difficulty voiding Musc Denies abnormal gait Neuro Denies Neuro-related abnormal movements, Denies abnormal gait and Denies behavioral changes Psych Denies behavioral changes and Denies change in appetite Endo Denies change in body appearance, Denies cold intolerance, Denies excessive sweating and Denies fatigue Physical Exam Vital Signs: Last Vital Signs BP 132/64 10/18/24 10:17 BMI result Body Mass Index 31.8 General: not in any acute distress, sitting comfortably on the chair Nutritional Appearance: well nourished and overweight Eyes: appearance normal, both eyes and all related structures; Alignment and Position: alignment normal and position normal Neck: No lymphadenopathy, no thyromegaly Resp: bilateral air entry equal, no added sounds present Cardio: Regular rate, regular rhythm; Heart sounds: S1 normal heart sound present and S2 normal heart sound present GI: soft, nontender, no guarding, no hepatosplenomegaly : bladder normal to inspection, bladder normal to palpation, no renal angle tenderness Skin: no rashes or lesions noted and elasticity normal Neuro: oriented to person, oriented to place, oriented to time and moves all extremities Results Reviewed Nephrology Results: Sodium 139 mmol/L (135-145) 09/27/24 Potassium 3.7 mmol/L (3.3-5.1) 09/27/24 Chloride 106 mmol/L (96-108) 09/27/24 Carbon Dioxide 25 mmol/L (22-29) 09/27/24 BUN 12 mg/dL (9-16) 09/27/24 Creatinine 0.66 mg/dL (0.5-1.4) 09/27/24 Calcium 10.0 mg/dL (8.4-10.2) 09/27/24 Assessment & Plan Assessment & Plan (1) Essential hypertension: Comment: We will change the pills to losartan hydrochlorothiazide 100 mg/25 mg once daily and stop hydrochlorothiazide. If needed we will add night time amlodipine We will refer her to sleep studies as she has some symptoms of sleep apnea Asked her to get a TSH with next set of labs Asked her to measure her blood pressures with her new changes in medications and maintain a log for the next visit. Code(s): I10 - Essential (primary) hypertension Category: Medical (2) Hypovitaminosis D: Comment: Continue vitamin-D supplementation Code(s): E55.9 - Vitamin D deficiency, unspecified Category: Medical (3) COPD (chronic obstructive pulmonary disease): Comment: Stopped smoking Code(s): J44.9 - Chronic obstructive pulmonary disease, unspecified Category: Medical Plan We will change the antihypertensives to losartan hydrochlorothiazide 100 mg/25 mg We will get referral for sleep studies as she has some symptoms of sleep apnea Mass the patient did get a log of blood pressures as we are changing her pills. We will follow her up with a phone call next week. needs to get TSH with next set of labs Orders: Referrals Sleep Medicine Referral I10 - Essential (primary) hypertension Medications: New losartan-hydrochlorothiazide 100-25 mg 1 tab PO DAILY 90 tabs 2RF Coding Level of Care Code New Pt Level 4 (17455) Diagnoses Essential hypertension I10 Hypovitaminosis D E55.9 COPD (chronic obstructive pulmonary disease) J44.9
== END 2024-10-18 10:45 | disposition home or self-care (01) ==
LOC: HO.HKA 10:14
PROVIDERS: PCP Internal Medicine; Visit Provider Internal Medicine Critical Care Medicine
DX: I10 Essential (primary) hypertension (principal); E55.9 Vitamin D deficiency, unspecified; J44.9 Chronic obstructive pulmonary disease, unspecified
CPT/HCPCS: 99204

== ENCOUNTER → 2024-10-18 10:13 | Outpatient (BNVA) | payer OTHER, SELFPAY | PROVIDERS: PCP Internal Medicine; Visit Provider Internal Medicine Critical Care Medicine | DX: J44.9 Chronic obstructive pulmonary disease, unspecified (principal); I10 Essential (primary) hypertension; E55.9 Vitamin D deficiency, unspecified; Z79.899 Other long term (current) drug therapy | CPT/HCPCS: 99202 ==

== ENCOUNTER → 2024-10-25 07:43 | Outpatient (BNV) | payer OTHER, SELFPAY | PROVIDERS: PCP Internal Medicine; Visit Provider Internal Medicine Cardiovascular Disease | DX: I35.0 Nonrheumatic aortic (valve) stenosis (principal); I35.8 Other nonrheumatic aortic valve disorders; I34.81 Nonrheumatic mitral (valve) annulus calcification | CPT/HCPCS: 93306 ==

== ENCOUNTER → 2024-10-25 08:05 | Outpatient (REF) | payer OTHER, SELFPAY ==
--- NOTE | 2024-10-25 07:43 | CA_ITS ---
Transthoracic Echocardiogram Amended Patient (Last, First, Middle): Krista Lugo, Gender: Female Date of : 1965 Age: 59 Procedure Date: 10/25/2024 Procedure Type: Transthoracic Echocardiogram Location: OP Height: 157.48 cm Weight: 74.39 kg BSA: 1.76 m2 Heart Rate: bpm BP: 160 / 80 mmHg Construction Mgr: TO Referring MD: Megan Grant MD Cattle Care Worker: Anmol Sparks MD Symptoms: R01.1 - Cardiac murmur, unspecified Study Quality: Adequate with contrast ECG Rhythm: Sinus Conclusions: - 1. Normal LV ejection fraction of 60 65% with impaired relaxation filling pattern 2. Early mild aortic stenosis 3. No gross pericardial effusion Findings Procedure Information Contrast agent, definity, is being given per protocol without apparent complications. Left Ventricle Normal left ventricular size, thickness, and systolic function. The visually estimated ejection fraction is between 60-65%. Spectral Doppler is indicative of an impaired relaxation filling pattern. E/E prime ratio is <8, consistent with normal filling pressures. Right Ventricle Normal right ventricular cavity size and systolic function. Atria Both atria are normal in size. There is no evidence of interatrial shunt. Aortic Valve There is mild calcification of the aortic valve. There is mild aortic valve stenosis. The peak aortic gradient is 18 mmHg.The mean gradient is 9 mmHg. The aortic valve area is 2.11 cm2. Mitral Valve There is mild anterior and posterior mitral leaflet thickening. There is mild mitral annular calcification. There is trace mitral valve regurgitation. There is no mitral valve stenosis. Pulmonic Valve The pulmonic valve is likely normal. Tricuspid Valve Likely normal tricuspid valve structure and function. There is trace tricuspid valve regurgitation. Normal right atrial pressure. Great Vessels All visible segments of the aorta are normal in size. The pulmonary artery was not well visualized. There is no dilatation of the ascending aorta measuring 3.20 cm. Venous The inferior vena cava is normal in size and collapses greater than 50% with inspiration. Pericardium/Pleural There is no evidence of pericardial effusion. Prior Study Comparison No prior study available for comparison. Measurements 2D Linear Measurements IVSd: 0.97 0.6-0.9/0.6-1.0 cm LVIDd: 4.11 3.9-5.3/4.2-5.9 cm LVIDd Index: 2.34 2.4-3.2/2.2-3.1 cm/m2 LVIDs: 2.83 2.0-3.6 cm LVPWd: 0.84 0.7-1.1 cm LA Diam: 3.00 2.7-3.8/3.0-4.0 cm LAIDs Index: 1.70 1.5-2.3 cm/m2 LV Mass: 144.34 67-162/88-224 g LV Mass Index: 82.01 43-95/49-115 g/m2 LVOT Diam: 2.10 3.0+(-)1.3 cm 2D Volumes LA Vol: 22.00 2D Systolic Function EF 4C: 64.20 >55% EF 2C: 64.00 >55% EF BiP: 63.00 >55% Mitral Valve MV Pk E: 0.77 MV PK A: 1.20 MV Decel Time: 207.00 E/A: 0.60 E'Lateral: 8.05 E'Medial: 5.44 E/E' Med: 14.10 E/E' Lat: 9.50 PHT: 61.00 MVA PHT: 3.61 Decel [place]: 3.71 Aortic Valve AoV Pk Salo: 2.12 AoV Mn Salo: 1.37 AoV VTI: 0.37 AoV Pk Grad: 18.00 Aov Mn Grad: 9.00 YOSI Cont.VTI: 2.11 AI Pk Salo: 4.66 AI [place]: 2.94 LVOT LVOT Pk Salo: 1.16 LVOT Mn Salo: 0.71 LVOT VTI: 0.23 LVOT Pk Grad: 5.00 LVOT Mn Grad: 2.00 LVOT Diam: 2.10 LVOT Area: 3.46 Diastolic Function MV Pk E: 0.77 MV Pk A: 1.20 E/A: 0.60 E'Medial: 5.44 E/E' Med: 14.10 E' Laterial: 8.05 E/E' Lat: 9.50 Right Ventricle TAPSE (mm): 24.60 TVS' Salo: 11.70 Tricuspid Valve RA Press: 3.00 Great Vessels Aorta Sinus of Valsalva: 3.43 2.0-3.5 cm Ao Asc: 3.20 2.1-3.4 cm Updated in Other Vendor System with Status of Final Anmol Sparks MD electronically signed on 10/25/2024 4:26:18 PM with status of Final
== END ==
LOC: HO.CARD 08:05
PROVIDERS: PCP Internal Medicine; Visit Provider Internal Medicine
DX: R01.1 Cardiac murmur, unspecified (principal)
CPT/HCPCS: 93306; Q9957

== ENCOUNTER 2024-11-07 10:40 | Outpatient (AMB) | payer OTHER, SELFPAY ==
--- NOTE | 2024-11-07 10:47 | HO.NEPHOV_ITS ---
Vital Signs 11/07/24 10:48 Height 5 ft Weight 160 lb 4 oz BMI 31.3 BP 130/86 Blood Pressure Location Rt brachial Position Sitting Pulse 69 Pulse Source Pulse Oximeter Pulse Oximetry (%) 96 Oxygen Delivery Method Room Air Intake Visit Reasons: 4wk follow-up/ Conf Financial Aid Counselor Required: No Accompanied by: Self / Same As Patient Allergies amlodipine Adverse Reaction (Verified 11/07/24 10:47) leg edema HPI Comments Details: 59-year-old lady Krista Lugo with past medical history significant for hypertension, COPD, arthritis, vitamin-D deficiency is here for followup of hypertension. She is on losartan 100 mg daily, hydralazine 100 mg TID for the management of blood pressures. takes losartan at 8AM and takes hydralazine TID on tylenol for arthritis doesnt take NSAID has a difficulties in the night, takes naps during the day, has snoring during the night [facility] Medical History History of abnormal cervical Pap smear Left knee pain Cough Hypovitaminosis D Pure hypercholesterolemia Essential hypertension Left hip pain Surgical History Hx of surgical procedure (06/19/24) History of loop electrical excision procedure (LEEP) History of ectopic History of laparoscopic cholecystectomy Family History Father Diabetes Hypertension Mother No problems noted. Sister Gynecologic cancer Maternal Uncle Prostate cancer Maternal Uncle Colon cancer Sister Cancer Brain cancer Sister Ovarian cancer Social History Housing: House Alcohol intake: never Patient Tobacco Use Status: Current everyday Tobacco user Tobacco use type: Cigarette Cigarettes Per Day: 5 e-Cigarette/Vaping Use: Never Used Second Hand Smoke Exposure: No service: No Current occupational status: unemployed Gender identity: Female Cognitive needs: No Hearing needs: No Vision needs: No Female Reproductive History Menstrual Age of Menarche: 10 Review of Systems Const Details: Const Denies body aches, Denies chills, Eyes Denies blurry vision and no change in vision ENT Denies bleeding gums and Denies change in voice Card Denies chest pain and Denies leg ulcers Resp Denies cough and Denies excessive phlegm production GI Denies abdominal pain and Denies bloating Denies hematuria, Denies urinary frequency and Denies difficulty voiding Musc Denies abnormal gait Neuro Denies Neuro-related abnormal movements, Denies abnormal gait and Denies behavioral changes Psych Denies behavioral changes and Denies change in appetite Endo Denies change in body appearance, Denies cold intolerance, Denies excessive sweating and Denies fatigue Physical Exam Vital Signs: Last Vital Signs Pulse 69 11/07/24 10:48 BP 130/86 11/07/24 10:48 Pulse Ox 96 11/07/24 10:48 Oxygen Delivery Method Room Air 11/07/24 10:48 BMI result Body Mass Index 31.3 General: Not in any acute distress, comfortable, sitting on the chair Nutritional Appearance: well nourished and overweight Eyes: appearance normal, both eyes and all related structures; Alignment and Position: alignment normal and position normal Neck: No lymphadenopathy, no thyromegaly Resp: bilateral air entry equal, no added sounds present Cardio: Regular rate, regular rhythm; Heart sounds: S1 normal heart sound present and S2 normal heart sound present, no edema GI: soft, nontender, no guarding, no hepatosplenomegaly : bladder normal to inspection, bladder normal to palpation, no renal angle tenderness Skin: no rashes or lesions noted and elasticity normal Neuro: oriented to person, oriented to place, oriented to time and moves all extremities Results Reviewed Nephrology Results: Sodium 139 mmol/L (135-145) 09/27/24 Potassium 3.7 mmol/L (3.3-5.1) 09/27/24 Chloride 106 mmol/L (96-108) 09/27/24 Carbon Dioxide 25 mmol/L (22-29) 09/27/24 BUN 12 mg/dL (9-16) 09/27/24 Creatinine 0.66 mg/dL (0.5-1.4) 09/27/24 Calcium 10.0 mg/dL (8.4-10.2) 09/27/24 Assessment & Plan Assessment & Plan (1) Essential hypertension: Code(s): I10 - Essential (primary) hypertension Category: Medical Plan: continue losartan hydrochlorothiazide 100 mg/25 mg once daily. Blood pressures better 130/80mmHg. pending sleep studies as she has some symptoms of sleep apnea which she is doing this Tuesday. Asked her to get a TSH with next set of labs Asked her to measure her blood pressures with her new changes in medications and maintain a log for the next visit. Asked her to loose weight and importance of low salt diet explained. (2) Hypovitaminosis D: Code(s): E55.9 - Vitamin D deficiency, unspecified Category: Medical Plan: continue supplement Plan as above Coding Level of Care Code Est Pt Level 4 (21273) Diagnoses Essential hypertension I10 Hypovitaminosis D E55.9
[2024-11-07 10:48] VITALS: BP 130/86; PULSE 69; O2SAT 96; BMI 31.3
== END 2024-11-07 11:10 | disposition home or self-care (01) ==
LOC: HO.HKA 10:41
PROVIDERS: PCP Internal Medicine; Visit Provider Internal Medicine Critical Care Medicine
DX: I10 Essential (primary) hypertension (principal); E55.9 Vitamin D deficiency, unspecified
CPT/HCPCS: 99214

== ENCOUNTER → 2024-11-07 10:40 | Outpatient (BNVA) | payer OTHER, SELFPAY | PROVIDERS: PCP Internal Medicine; Visit Provider Internal Medicine Critical Care Medicine | DX: I10 Essential (primary) hypertension (principal); E55.9 Vitamin D deficiency, unspecified | CPT/HCPCS: 99212 ==

== ENCOUNTER → 2024-11-12 07:44 | Outpatient (REF) | payer OTHER, SELFPAY | LOC: HO.SL 07:44 | PROVIDERS: PCP Internal Medicine; Visit Provider Internal Medicine Critical Care Medicine | DX: G47.30 Sleep apnea, unspecified (principal); R06.83 Snoring | CPT/HCPCS: 95806 ==

== ENCOUNTER → 2024-11-12 07:53 | Outpatient (BNV) | payer OTHER, SELFPAY | PROVIDERS: PCP Internal Medicine; Visit Provider Psychiatry & Neurology Neurology | DX: R06.83 Snoring (principal) | CPT/HCPCS: 95806 ==

== ENCOUNTER 2025-02-12 07:44 | Outpatient (AMB) | payer OTHER, SELFPAY ==
--- OUTSIDE RECORDS SUMMARY | 2025-02-12 07:48 | XMS_ITS | Patient Health Record ---
Author Organization [facility] Address [address] [place] [address] Care Team Providers Care Release Specialist Name Role Phone Megan Whitaker Primary Care Provider Unavailab Billy Bennett Jr Unavailable Reason For Referral No Information Medications Medication SIG (Take, Route, Frequency, Duration) Notes Start Date End Date Status Simvastatin 20 MG Oral for 30 Active Lisinopril 20 MG Oral for 30 A ctive ProAir HFA 108 (90 Base) MCG/ACT Inhalation for 17 Active MiraLax (colon prep) 8.3 ounce ((238) grams mixed with Gatorade or Crystal Light orally begin at 5:00 p.m. the day before the procedure for 1 day 06/30/2017 Active Social History Tobacco Use: Social History Observation Description Date Details (start date - stop date) Current Smoker NA - NA Tobacco Use/Smoking Question Answer Notes Patient is a current smoker How often do you smoke cigarettes? every day How many cigarettes a day do you smoke? 5 or les s Alcohol Screen Question Answer Notes Did you have a drink containing alcohol in the p ast year? No Points 0 Interpretation Negative Problems Problem Type SNOMED Code ICD Code Onset Dates Problem Status W/U Status Risk Notes Problem 993022497 Colon cancer screening (Z12.11) Active confirmed Problem [id number] Epigastric pain (R10.13) Active confirmed Plan Of Treatment Future Test Test Name Order Date COLONOSCOPY 06/30/2017 Insurance Providers Payer Name Payer Address Payer Phone Subscriber Number Group Number Insured Name Patient Relationship to Insured Coverage Start Date Coverage End Date [facility] [address] [place] [phone] [id number] RAJNI FORRESTER Self - patient is the insured Medical (General) History Medical History History ICD Code hypertension Denies MD,DM,CVA,Lung disease,renal dise ase Surgical History Surgery Date(Month/Year) cholecystectomy 2018 tubal ectopic 2004
[2025-02-12 07:54] VITALS: BP 158/92; PULSE 70; O2SAT 95; BMI 30.3
--- NOTE | 2025-02-12 07:54 | MHC.PC.OV ---
Vital Signs 02/12/25 07:54 Height 5 ft Weight 155 lb BMI 30.3 BP 158/92 H Blood Pressure Location Lt brachial Position Sitting Pulse 70 Pulse Source Pulse Oximeter Pulse Oximetry (%) 95 Oxygen Delivery Method Room Air Intake Visit Reasons: bp Intake Note: Patient took BP meds at 7:10 this morning. Had 2 cups of coffee and 2 cigarettes. Reports no chest pain, no shortness of breath. Lokie Engineer Required: No Accompanied by: Self / Same As Patient Allergies amlodipine Adverse Reaction (Verified 02/12/25 08:18) leg edema Medication List - Last Reconciled 02/12/25 by Megan Grant MD aspirin (Adult Aspirin Regimen) 81 mg PO DAILY 90 days atorvastatin 80 mg PO BEDTIME 90 days calcium carbonate 600 mg PO BID 90 days cholecalciferol (vitamin D3) 50 mcg PO DAILY 90 days fluticasone furoate-vilanterol 200-25 mcg/dose (Breo Ellipta) 1 ea PO DAILY losartan-hydrochlorothiazide 100-25 mg 1 tab PO DAILY umeclidinium 62.5 mcg/actuation (Incruse Ellipta) 1 inh inhalation DAILY Ventolin HFA 90 mcg/actuation (albuterol sulfate) 2 puffs inhalation Q6H PRN 30 days NS Tobacco use date assessed: 09/27/24 Dental Screening Dental Screen Date: 09/27/24 HPI HPI Comments History of Present Illness Details The patient is a 59-year-old female presenting with hypertension management and COPD follow-up. Her blood pressure was recorded at 158/90 mmHg, which is above the target of less than 130/80 mmHg. She is currently on losartan with hydrochlorothiazide for blood pressure control. The patient has a history of COPD and is under the care of a business development analyst. She uses Breo once daily and Ventolin as needed, with no recent episodes of wheezing reported. A CT scan for lung cancer screening is scheduled for February 13. The patient was diagnosed with osteopenia following a DEXA scan earlier this year. She is taking calcium with vitamin D supplements as part of her management plan. She has impaired glucose tolerance with a previous blood sugar level of 106 mg/dL. A follow-up blood test is planned for May during her physical examination. The patient reports a history of obstructive sleep apnea but has not been using her CPAP machine due to malfunction. She has been advised to contact the supplier for a replacement. The patient experiences mild depression, which she attributes to her son's upcoming deployment. She reports that her mood is stable at present. [facility] Medical History (Updated 02/12/25 @ 08:29 by Megan Grant MD) History of abnormal cervical Pap smear Left knee pain Cough Hypovitaminosis D Pure hypercholesterolemia Essential hypertension Left hip pain Surgical History Hx of surgical procedure (06/19/24) History of loop electrical excision procedure (LEEP) History of ectopic History of laparoscopic cholecystectomy Family History Father Diabetes Hypertension Mother No problems noted. Sister Gynecologic cancer Maternal Uncle Prostate cancer Maternal Uncle Colon cancer Sister Cancer Brain cancer Sister Ovarian cancer Social History (Updated 02/12/25 @ 08:23 by Megan Grant MD) Housing: House Alcohol intake: never Patient Tobacco Use Status: Current everyday Tobacco user Tobacco use type: Cigarette Cigarettes Per Day: 8 e-Cigarette/Vaping Use: Never Used Second Hand Smoke Exposure: No service: No Current occupational status: unemployed Gender identity: Female Cognitive needs: No Hearing needs: No Vision needs: No Female Reproductive History Menstrual Age of Menarche: 10 Questionnaire Thrive Questionnaire Date Thrive assessed: 09/21/24 I am a: Patient What is your living situation today?: I have a steady place to live Within the past 12 months, did the food you bought not last and you didn't have the money to get more?: Never true Within the past 12 months, did you worry whether your food would run out before you got money to buy more?: Never true Do you have trouble paying for medicines?: Yes Do you have trouble getting transportation to medical appointments?: No Do you have trouble paying your heating and electricity bill?: No Do you have trouble taking care of your child, family member or friend?: No Do you have trouble with day-to-day activities such as bathing, preparing meals, shopping, managing finances, etc.?: Yes Are you currently unemployed and looking for a job?: No Are you interested in more education?: No Please select the resources that you would like help with: None Currently or been in a relationship where the following occur: No concerns reported THRIVE Score: 0 NIKO-7 AMB Questionnaire NIKO-7 Date NIKO - 7 assessed: 09/27/24 Source: Developed by Drs. Doug Valiente, Sharon Hubbard, Cristóbal Armijo and colleagues, with an educational vida from [employer]. Review of Systems Const All systems reviewed & are unremarkable except as noted in HPI and below Card Denies chest pain at rest, Denies chest pain with activity, Denies edema, Denies irregular heart rhythm, Denies claudication, Denies dyspnea, Denies dyspnea on exertion, Denies orthopnea, Denies paroxysmal nocturnal dyspnea and Denies slow heart rate Resp Denies cough, Denies dyspnea and Denies dyspnea on exertion Physical exam (Primary Care) Vital Signs: Last Vital Signs Pulse 70 02/12/25 07:54 BP 158/92 H 02/12/25 07:54 Pulse Ox 95 02/12/25 07:54 Oxygen Delivery Method Room Air 02/12/25 07:54 BMI result Body Mass Index 30.3 BMI Assessment/Plan discussion: High BMI High, discussed plan: lifestyle, weight reduction, dietary and physical activity Tobacco/Smoking Status: Tobacco use Status Tobacco use date assessed 09/27/24 02/12/25 08:00 Patient Tobacco Use Status Current everyday Tobacco 02/12/25 08:00 Tobacco use type Cigarette 02/12/25 08:00 e-Cigarette/Vaping Use Never Used 02/12/25 08:00 Are you ready to quit: No Tobacco cessation counseling provided: Yes Items discussed: Nicotine replacement and QuitWorks Relapse Prevention: discussed the importance of a supportive environment, discussed extending NRT, discussed negative mood or depression after quitting, weight gain after smoking is common and discussed dietary, exercise and/or lifestyle changes Number of minutes spent counselin CPT code: 01369 - 4-10 Minutes Thrive Assessment: Date of Thrive Assessment Date Thrive assessed 09/21/24 02/12/25 08:00 Currently or been in a relationship where the following occur: No concerns reported Resp Effort & Inspection: normal respiratory effort Auscultation: clear to auscultation bilaterally Cardio Jugular venous distension: no JVD Rate: regular rate Rhythm: regular rhythm Heart sounds: S1 normal heart sound present and S2 normal heart sound present Extrem General: Yes full ROM Coding Level of Care Code Est Pt Level 4 (46840) Complex EM visit Add On G2211 Diagnoses Essential hypertension I10 Pure hypercholesterolemia E78.00 Mild major depression F32.0 COPD (chronic obstructive pulmonary disease) J44.9 Osteopenia M85.80 Impaired glucose tolerance R73.02 Additional Codes Vital Signs *Quality* - CPT code: 97136 - 4-10 Minutes ([id number]) Time Spent (min) 25 Assessment & Plan Assessment & Plan (1) Essential hypertension: Code(s): I10 - Essential (primary) hypertension Category: Medical (2) Pure hypercholesterolemia: Code(s): E78.00 - Pure hypercholesterolemia, unspecified Category: Medical (3) Mild major depression: Code(s): F32.0 - Major depressive disorder, single episode, mild Category: Medical (4) COPD (chronic obstructive pulmonary disease): Comment: Stopped smoking Code(s): J44.9 - Chronic obstructive pulmonary disease, unspecified Category: Medical (5) Osteopenia: Code(s): M85.80 - Other specified disorders of bone density and structure, unspecified site Category: Medical (6) Impaired glucose tolerance: Code(s): R73.02 - Impaired glucose tolerance (oral) Category: Medical Plan Plan Patient was informed and verbally consented to the use of an ambient scribe for clinic note documentation during this visit. 1. Essential (primary) hypertension I10 The patient's blood pressure was elevated at 158/90 mmHg, above the target of less than 130/80 mmHg. She is currently on losartan with hydrochlorothiazide for management. A follow-up blood pressure check is scheduled in three weeks with the nurse navigator. 2. Chronic obstructive pulmonary disease, unspecified J44.9 HCC 111 The patient is under pulmonology care for COPD and uses Breo daily and Ventolin as needed. A CT scan for lung cancer screening is scheduled for February 13. 3. Other specified disorders of bone density and structure, unspecified site M85.80 The patient is taking calcium with vitamin D supplements following a diagnosis of osteopenia from a DEXA scan. 4. Impaired glucose tolerance (oral) R73.02 The patient has impaired glucose tolerance with a previous blood sugar level of 106 mg/dL. A follow-up blood test is planned for May during her physical examination. 5. Major depressive disorder, recurrent, mild F33.0 HCC 59 The patient experiences mild depression related to her son's upcoming deployment but reports a stable mood currently. Orders: Orders Lipid Panel 4 Months E78.5 - Hyperlipidemia, unspecified Vitamin D 25-OH Total 4 Months E55.9 - Vitamin D deficiency, unspecified Comprehensive [place]. Panel Fast 4 Months I10 - Essential (primary) hypertension
== END 2025-02-12 08:29 | disposition home or self-care (01) ==
LOC: HO.HMCH 07:45
PROVIDERS: PCP Internal Medicine; Visit Provider Internal Medicine
DX: I10 Essential (primary) hypertension (principal); E78.00 Pure hypercholesterolemia, unspecified; F32.0 Major depressive disorder, single episode, mild; J44.9 Chronic obstructive pulmonary disease, unspecified; M85.80 Other specified disorders of bone density and structure, unspecified site; R73.02 Impaired glucose tolerance (oral)

== ENCOUNTER → 2025-02-12 07:44 | Outpatient (BNVA) | payer OTHER, SELFPAY | PROVIDERS: PCP Internal Medicine; Visit Provider Internal Medicine | DX: I10 Essential (primary) hypertension (principal); J44.9 Chronic obstructive pulmonary disease, unspecified; M85.80 Other specified disorders of bone density and structure, unspecified site; G47.33 Obstructive sleep apnea (adult) (pediatric); E78.00 Pure hypercholesterolemia, unspecified; F33.0 Major depressive disorder, recurrent, mild; R73.02 Impaired glucose tolerance (oral); E55.9 Vitamin D deficiency, unspecified | CPT/HCPCS: 99212 ==

== ENCOUNTER 2025-02-13 12:47 | Outpatient (REF) | payer OTHER, SELFPAY ==
--- NOTE | ~2025-02-13 | CT_ITS ---
EXAMINATION: CT LUNG SCREENING FOLLOW UP WITHOUT IV CONTRAST HISTORY: Z87.891 - Personal history of nicotine dependence TECHNIQUE: Low dose axial images were obtained from the sternal notch to upper abdomen without IV contrast per standard departmental protocol. Sagittal and coronal reformatted images were also obtained and reviewed. One or more of the following techniques was used for dose reduction: Automated exposure control, adjustment of the mA and/or kV according to patient size, use of iterative reconstruction technique. DLP: 47 mGy-cm COMPARISON: Comparison is made with the prior examination dated 07/16/2024. FINDINGS: Lung nodules: The previously described new nodule in the superior segment of the left lower lobe is smaller in size (series 5, image 46). Again seen are nodules measuring up to 4 mm in size in the right upper lobe (series 5, images 27 and 54), in the right middle lobe (series 5, images 81 and 89), and in the right lower lobe (series 5, images 87 and 109). A 5 mm subpleural nodule at the left lung apex (series 5, image 25) is unchanged. No new nodules are identified. Emphysema: none Coronary Calcification: none Aortic Arch Calcification: mild Potentially Significant Incidentals : none Additional Chest Findings: There is no pleural or pericardial effusion. No mediastinal or axillary lymphadenopathy is identified. Visualized upper abdomen: The visualized portions of the liver, spleen, and adrenals have an unremarkable unenhanced appearance. CT/CT lung screen follow up IMPRESSION: The previously seen new nodule in the left lower lobe is smaller. No suspicious pulmonary nodules are identified. LUNG-RADS ASSESSMENT: Lung-RADS 2: Benign MANAGEMENT: Continue annual screening with LDCT in 12 months Category S: N/A Electronically signed by: Doug Villagomez MD 02/13/2025 01:23 PM EDT
--- OUTSIDE RECORDS SUMMARY | 2025-02-13 16:13 | XMS_ITS | Patient Health Record ---
Author Organization [facility] Address [address] [place] [address] Care Team Providers Care Pet Adoption Counselor Name Role Phone Megan Whitaker Primary Care [...] Problem Status W/U Status Risk Notes Problem [id number] Colon cancer screening (Z12.11) Active confirmed Problem 29773376 Epigastric pain (R10.13) Active confirmed Plan Of Treatment Future Test Test Name Order Date COLONOSCOPY 06/30/2017 Insurance Providers Payer Name Payer Address Payer Phone Subscriber Number Group Number Insured Name Patient Relationship to Insured Coverage Start Date Coverage End Date [facility] [address] [place] [phone] [id number] RAJNI FORRESTER Self - patient is the insured Medical (General) History Medical History History ICD Code hypertension Denies SC,DM,CVA,Lung disease,renal dise ase Surgical History Surgery Date(Month/Year) cholecystectomy 2018 tubal ectopic 2004
== END 2025-02-13 12:48 | disposition home or self-care (01) ==
LOC: HO.CT 12:47
PROVIDERS: PCP Internal Medicine; Visit Provider Internal Medicine Pulmonary Disease
DX: Z87.891 Personal history of nicotine dependence (principal)
CPT/HCPCS: 71250

== ENCOUNTER → 2025-02-13 12:48 | Outpatient (BNV) | payer OTHER, SELFPAY | PROVIDERS: PCP Internal Medicine; Visit Provider Radiology Diagnostic Radiology | DX: J44.9 Chronic obstructive pulmonary disease, unspecified (principal) | CPT/HCPCS: 71250 ==

== ENCOUNTER 2025-03-06 09:09 | Outpatient (AMB) | payer OTHER, SELFPAY ==
--- NOTE | 2025-03-06 09:24 | MHC.OFFVIS ---
Vital Signs 03/06/25 09:27 Height 5 ft Weight 155 lb BMI 30.3 BP 140/84 H Blood Pressure Location Rt brachial Position Sitting Pulse 82 Pulse Source Pulse Oximeter Pulse Oximetry (%) 98 Oxygen Delivery Method Room Air Intake Visit Reasons: Obstructive sleep apnea Allergies amlodipine Adverse Reaction (Verified 03/06/25 09:30) leg edema HPI HPI Obstructive sleep apnea: Details: 59-year-old lady, active 30+ pack-year followed for moderate COPD and pulmonary nodules up to 5 mm.? She was not able to tolerate Trelegy. She continues on Breo, duo nebs, and albuterol MDI. At the last office visit patient was prescribed Incruse, however she was not able to receive it yet and her symptoms are not as well controlled. Her follow-up CT scan showed stable pulmonary nodules. [facility] Medical History History of abnormal cervical Pap smear Left knee pain Cough Hypovitaminosis D Pure hypercholesterolemia Essential hypertension Left hip pain Surgical History Hx of surgical procedure (06/19/24) History of loop electrical excision procedure (LEEP) History of ectopic History of laparoscopic cholecystectomy Family History Father Diabetes Hypertension Mother No problems noted. Sister Gynecologic cancer Maternal Uncle Prostate cancer Maternal Uncle Colon cancer Sister Cancer Brain cancer Sister Ovarian cancer Social History (Updated 02/12/25 @ 08:23 by Megan Grant MD) Housing: House Alcohol intake: never Patient Tobacco Use Status: Current everyday Tobacco user Tobacco use type: Cigarette Cigarettes Per Day: 8 e-Cigarette/Vaping Use: Never Used Second Hand Smoke Exposure: No service: No Current occupational status: unemployed Gender identity: Female Cognitive needs: No Hearing needs: No Vision needs: No Female Reproductive History Menstrual Age of Menarche: 10 Review of Systems Const Denies daytime sleepiness, Denies excessive sweating, Denies fatigue, Denies fever(s), Denies lethargy, Denies malaise, Denies night sweats, Denies snoring and Denies weight loss Eyes Denies blurry vision and Denies itchy eyes ENT Denies nasal congestion, Denies post nasal drip, Denies sinus pain, Denies sinus pressure and Denies other ( Thrush) Card Denies chest pain, Denies pedal edema, Denies dyspnea, Denies orthopnea and Denies paroxysmal nocturnal dyspnea Resp Reports cough, Denies hemoptysis, Denies excessive phlegm production, Denies dyspnea, Denies snoring and Denies wheezing GI Denies abdominal pain and Denies heartburn Musc Denies myalgias, Denies arthralgias and Denies joint swelling Skin/Breast Denies rash Neuro Denies memory loss and Denies seizure-like activity Psych Denies abnormal sleep pattern, Denies anxiety and Denies memory loss Endo Denies excessive sweating, Denies fatigue and Denies heat intolerance Antelmo/Lymph Denies easy bruising Aller/Immun Denies itchy eyes, Denies seasonal rhinorrhea and Denies wheezing Physical Exam Vital Signs: Last Vital Signs Pulse 82 03/06/25 09:27 BP 140/84 H 03/06/25 09:27 Pulse Ox 98 03/06/25 09:27 Oxygen Delivery Method Room Air 03/06/25 09:27 BMI result Body Mass Index 30.3 Const General: no acute distress and alert Nutritional Appearance: not obese Orientation/consciousness: Other orientation findings ( oriented) HEENT Head: Yes atraumatic Eyes General: appearance normal, both eyes and all related structures Sclerae: sclerae normal EOM: EOMs intact bilaterally Neck Neck: Yes supple Lymphatic: no lymphadenopathy noted Resp Effort & Inspection: normal respiratory effort and no use of accessory muscles Auscultation: clear to auscultation bilaterally Cardio Rate: regular rate Rhythm: regular rhythm Heart sounds: no gallops, no murmurs and no rubs Skin General skin exam: other ( warm) Extrem General: No clubbing, No cyanosis and No edema Assessment & Plan Assessment & Plan (1) COPD (chronic obstructive pulmonary disease): Code(s): J44.9 - Chronic obstructive pulmonary disease, unspecified Category: Medical Plan: Suboptimally controlled on Breo and albuterol MDI. Incruse reordered. (2) Personal history of nicotine dependence: Code(s): Z87.891 - Personal history of nicotine dependence Category: Medical Plan: Results of lung cancer screening CT chest reviewed, no worrisome nodules. Continue with yearly screening, next in January of 2026. Medications: Refilled umeclidinium 62.5 mcg/actuation (Incruse Ellipta) 1 inh inhalation DAILY 1 ea 6RF Coding Level of Care Code Est Pt Level 4 (40918) Diagnoses COPD (chronic obstructive pulmonary disease) J44.9 Personal history of nicotine dependence Z87.891
[2025-03-06 09:27] VITALS: BP 140/84; PULSE 82; O2SAT 98; BMI 30.3
== END 2025-03-06 09:46 | disposition home or self-care (01) ==
PROVIDERS: PCP Internal Medicine; Visit Provider Internal Medicine Pulmonary Disease
DX: J44.9 Chronic obstructive pulmonary disease, unspecified (principal); Z87.891 Personal history of nicotine dependence
CPT/HCPCS: 99214

== ENCOUNTER → 2025-03-06 09:09 | Outpatient (BNVA) | payer OTHER, SELFPAY | PROVIDERS: PCP Internal Medicine; Visit Provider Internal Medicine Pulmonary Disease | DX: J44.9 Chronic obstructive pulmonary disease, unspecified (principal); Z87.891 Personal history of nicotine dependence | CPT/HCPCS: 99212 ==

== ENCOUNTER → 2025-03-07 09:13 | Outpatient (BNVA) | payer OTHER, SELFPAY | PROVIDERS: PCP Internal Medicine | DX: Z01.30 Encounter for examination of blood pressure without abnormal findings (principal) | CPT/HCPCS: 99211 ==

== ENCOUNTER 2025-03-12 09:41 | Outpatient (AMB) | payer OTHER, SELFPAY ==
[2025-03-12 09:52] VITALS: BP 150/80; PULSE 71; O2SAT 96; BMI 30.9
--- NOTE | 2025-03-12 09:52 | HO.NEPHOV ---
Vital Signs 03/12/25 09:52 Height 5 ft Weight 158 lb BMI 30.9 BP 150/80 H Blood Pressure Location Lt brachial Position Sitting Pulse 71 Pulse Source Pulse Oximeter Pulse Oximetry (%) 96 Oxygen Delivery Method Room Air Intake Visit Reasons: 4 month F/U confirmed Strategy Director Required: No Accompanied by: Self / Same As Patient Allergies amlodipine Adverse Reaction (Verified 03/12/25 09:53) leg edema HPI Comments Details: 59-year-old lady Krista Lugo with past medical history significant for hypertension, COPD, arthritis, vitamin-D deficiency is here for followup of hypertension. Happy that her son got a boy who lives with them. She is on losartan 100 mg HCTZ 25mg in AM on tylenol for arthritis doesnt take NSAID PFSH Medical History History of abnormal cervical Pap smear Left knee pain Cough Hypovitaminosis D Pure hypercholesterolemia Essential hypertension Left hip pain Surgical History Hx of surgical procedure (06/19/24) History of loop electrical excision procedure (LEEP) History of ectopic History of laparoscopic cholecystectomy Family History Father Diabetes Hypertension Mother No problems noted. Sister Gynecologic cancer Maternal Uncle Prostate cancer Maternal Uncle Colon cancer Sister Cancer Brain cancer Sister Ovarian cancer Social History Housing: House Alcohol intake: never Patient Tobacco Use Status: Current everyday Tobacco user Tobacco use type: Cigarette Cigarettes Per Day: 8 e-Cigarette/Vaping Use: Never Used Second Hand Smoke Exposure: No service: No Current occupational status: unemployed Gender identity: Female Cognitive needs: No Hearing needs: No Vision needs: No Female Reproductive History Menstrual Age of Menarche: 10 Review of Systems Const Details: Const : no body aches, no chills, no excessive sweating and no fatigue Eyes: no blurry vision and no change in vision ENT: no bleeding gums and no change in voice, no dizziness Card: no chest pain, no shortness of breath, no orthopnea, no PND Resp: + cough, no excessive phlegm production, no SOB GI: no abdominal pain and no nausea, no vomiting : no hematuria, no urinary frequency and no difficulty voiding Musc: no abnormal gait, no bone pain Neuro: no abnormal movements, no weakness, no dizziness, no abnormal gait and no behavioral changes Psych: no behavioral changes and no change in appetite Endo: no change in body appearance, no cold intolerance, no excessive sweating and no fatigue Physical Exam Vital Signs: Last Vital Signs Pulse 71 03/12/25 09:52 BP 150/80 H 03/12/25 09:52 Pulse Ox 96 03/12/25 09:52 Oxygen Delivery Method Room Air 03/12/25 09:52 BMI result Body Mass Index 30.9 General: not in any acute distress, comfortable, sitting on the chair Nutritional Appearance: well nourished and weight slightly on higher side Eyes: normal position, no icterus Neck: No lymphadenopathy, no thyromegaly Resp: bilateral air entry equal, no added sounds Cardio: normal S1, S2 heard, no murmur heard, no edema GI: soft, nontender, no guarding, no hepatosplenomegaly : bladder normal to inspection, bladder normal to palpation, no renal angle tenderness Skin: no rashes or lesions noted and elasticity normal Neuro: oriented to person, oriented to place, oriented to time and moves all extremities Assessment & Plan Assessment & Plan (1) Essential hypertension: Code(s): I10 - Essential (primary) hypertension Category: Medical Plan Hypertension continue losartan hydrochlorothiazide 100 mg/25 mg once daily. Blood pressures are on higher side., She has a new grand son at home, another son is deployed in [place] so she is stressed about it, her has diabetes and other comorbididties so she gives him shots three times a day and adds to the stressors. Doesnt check her blood pressures checked at home. Lost about 10lbs this year, asked her to loose more weight. still smoking about 8 cigarretes a day- advised to cut down and stop Eats greens, brocolli and some legumes, uses olive oil. Asked her to watch her salt intake. Sleep study normal He has a smoker, no CAD, no stroke, lipids are under control, nondiabetic, no family history of coronary artery disease. His relative risk reduction of major cardiovascular events is 9.3% as per labs from 09/2024 plan: - target SBP around 130/90 - will change her antihypertensive to amlodipine 10/valsartan 320/HCTZ 25 daily pill. - weight reduction, low salt diet, smoking cessation advised to patient. - will get plasma aldosterone and renin levels to look for the ratio, TSH ordered - will plan for 24 hr sodium, aldosterone and creatinine excretion if needed - avoid any NSAID intake, excessive decongestant intake, herbal preparations intake Medications: New wcxgdaxkdc-zjkbnbxea-nydjwyosy 10-320-25 mg 1 tab PO DAILY 90 tabs 3RF Discontinued losartan-hydrochlorothiazide 100-25 mg Discontinued Reason: Doctor's Order 1 tab PO DAILY 90 tabs 2RF Coding Level of Care Code Est Pt Level 4 (45543) Diagnoses Essential hypertension I10
--- OUTSIDE RECORDS SUMMARY | 2025-03-12 10:49 | XMS_ITS | Patient Health Record ---
Author Organization [facility] Address [address] [place] [address] Care Team Providers Care Website Designer Name Role Phone Megan Whitaker Primary Care Provider Unavailab Billy Bennett Jr Unavailable Reason For Referral No Information Medications Medication SIG (Take, Route, Frequency, Duration) Notes Start Date End Date Status Simvastatin 20 MG Oral; Duration: 30 Active Lisinopril 20 MG Oral; Duration: 30 Active ProAir HFA 108 (90 Base) MCG/ACT Inhalation; Duration: 17 Act venecia MiraLax (colon prep) 8.3 ounce ((238) grams mixed with Gatorade or Crystal Light orally begin at 5:00 p.m. the day before the procedure; Duration: 1 day 06/30/2017 Active Social History Tobacco [...] Problem Status W/U Status Risk Notes Problem Colon cancer screening (786346415) Colon cancer screening (Z12.11) Active confirmed Problem Epigastric pain (32977074) Epigastric pain (R10.13) Active confirmed Plan Of Treatment Future Test Test Name Order Date COLONOSCOPY 06/30/2017 Insurance Providers Payer Name Payer Address Payer Phone Subscriber Number Group Number Insured Name Patient Relationship to Insured Coverage Start Date Coverage End Date [facility] [address] [place] [phone] [id number] RAJNI FORRESTER Self - patient is the insured Medical (General) History Medical History History ICD Code hypertension Denies HI,DM,CVA,Lung disease,renal dise ase Surgical History Surgery Date(Month/Year) cholecystectomy 2018 tubal ectopic 2004
== END 2025-03-12 10:31 | disposition home or self-care (01) ==
LOC: HO.HKA 09:42
PROVIDERS: PCP Internal Medicine; Visit Provider Internal Medicine Critical Care Medicine
DX: I10 Essential (primary) hypertension (principal)
CPT/HCPCS: 99214

== ENCOUNTER → 2025-03-12 09:41 | Outpatient (BNVA) | payer OTHER, SELFPAY | PROVIDERS: PCP Internal Medicine; Visit Provider Internal Medicine Critical Care Medicine | DX: I10 Essential (primary) hypertension (principal); F17.200 Nicotine dependence, unspecified, uncomplicated | CPT/HCPCS: 99212 ==

== ENCOUNTER 2025-04-29 09:05 | Outpatient (REF) | payer OTHER, SELFPAY ==
--- NOTE | ~2025-04-29 | MM_ITS ---
EXAMINATION: MM SCREENING DIGITAL BREAST TOMOSYNTHESIS, BILATERAL CLINICAL INFORMATION: Screening. Asymptomatic. COMPARISON: Mammography: Comparison is made with available priors TECHNIQUE: Digital breast mammography with tomosynthesis is performed in both the craniocaudal and mediolateral oblique views along with computer-aided detection (CAD). FINDINGS: The breasts are heterogeneously dense, which may obscure small masses. Bilateral marker clips. There are no significant masses, abnormal calcifications, or other abnormalities. MM/MM tomosynthesis screening BI IMPRESSION: No mammographic evidence of malignancy. ASSESSMENT: BI-RADS Category 2: Benign RECOMMENDATION: Routine annual mammography screening. 1 year F/U This examination should not preclude the clinical evaluation of a suspicious palpable abnormality. This patient's information was entered into a reminder system with a target due date for their next mammogram. Electronically signed by: Maria Del Carmen Riggins DO 04/29/2025 03:49 PM JESENIA
== END 2025-04-29 09:06 | disposition home or self-care (01) ==
LOC: HO.MAMMO 09:05
PROVIDERS: PCP Internal Medicine; Visit Provider Internal Medicine
DX: Z12.31 Encounter for screening mammogram for malignant neoplasm of breast (principal); R92.0 Mammographic microcalcification found on diagnostic imaging of breast
CPT/HCPCS: 77063; 77067

== ENCOUNTER → 2025-04-29 09:30 | Outpatient (BNV) | payer OTHER, SELFPAY | PROVIDERS: PCP Internal Medicine; Visit Provider Internal Medicine | DX: Z12.31 Encounter for screening mammogram for malignant neoplasm of breast (principal) | CPT/HCPCS: 77063; 77067 ==